=== PATIENT | female | born 1960 | race American Indian/Alaskan Native ===

== ENCOUNTER 2019-12-16 12:12 | Inpatient (IN) | payer OTHER ==
[2019-12-16] MEDS ORDERED: DEXTROSE 50% IN WATER (25GM) 50 ML SYRINGE IV ONE (12:22)
[2019-12-16] MEDS ORDERED: ETOMIDATE 20 MG/10 ML INJ IV ONE (12:23)
[2019-12-16] MEDS ORDERED: ROCURONIUM 50 MG/5 ML INJ IV ONE (12:23)
[2019-12-16] MEDS ORDERED: SUCCINYLCHOLINE CHLORIDE 200 MG/10 ML INJ MDV ONE (12:23)
[2019-12-16] MEDS ORDERED: SODIUM CHLORIDE 0.9% 1000 ML 1,000 ML IV ONE (12:39)
[2019-12-16] MEDS ORDERED: SODIUM BICARB 8.4% 50 MEQ/50 ML SYRINGE IV ONE (12:45)
[2019-12-16] MEDS ORDERED: EPINEPHrine 1 MG/10 ML SYRINGE ONE (12:45)
--- NOTE | 2019-12-16 12:53 | Emergency Department Report ---
ED Altered Mental Status HPI - General Stated Complaint: STROKE Time Seen by Provider: 12/16/19 12:38 Source: EMS - History of Present Illness Initial Comments: Patient is 59 years old female with history of congestive heart failure. Patient brought to the emergency room via EMS from home after patient was found unresponsive by her family. Family stated that last time patient was seen normal around 10 AM. EMS stated that patient was found unresponsive with initial oxygen saturation in the 70s. Patient found to be tachycardic. Upon arrival to the ER patient is unresponsive with a large amount of coffee-ground emesis. Patient immediately suctioned and intubated by me. Patient went into cardiac arrest with rhythm showing a PEA. Patient received 1 dose of epi and found to have a glucose of 48 patient also received dextrose 50. Patient regained her circulation after 2 rounds of CPR. MD Complaint: altered mental status, decreased responsiveness -: Sudden, This morning Severity: severe - Related Data Allergies Allergy/AdvReac Type Severity Reaction Status Date / Time Unable to Assess Allergy Unverified 12/16/19 17:18 ED Review of Systems ROS: Stated complaint: STROKE Other details as noted in HPI Comment: Unobtainable due to pts medical conditions ED Physical Exam - General General appearance: obtunded - Head Head exam: Present: atraumatic, normocephalic - ENT ENT exam: Present: mucous membranes dry - Neck Neck exam: Present: normal inspection - Respiratory Respiratory exam: Present: other (No spontaneous breathing.) - Cardiovascular Cardiovascular Exam: Present: tachycardia - GI/Abdominal GI/Abdominal exam: Present: soft, distended - Neurological Exam Neurological exam: Present: altered - Skin Skin exam: Present: warm, dry - Assessment Assessment Interval: Baseline - Level of Consciousness 1a. Level of Consciousness: coma/unresponsive - LOC Questions 1b. LOC Questions: dysarthric/intubated - LOC Command 1c. LOC Commands: performs no tasks correctly - Best Gaze 2. Best Gaze: normal - Visual 3. Visual: bilateral hemianopia - Facial Palsy 4. Facial Palsy: normal symmetrical movement - Motor Arm 5a. Motor Arm Left: no movement 5b. Motor Arm Right: no movement - Motor Leg 6a. Motor Leg Left: no movement 6b. Motor Leg Right: no movement - Limb Ataxia 7. Limb Ataxia: absent - Sensory 8. Sensory: no response/quadraplegic - Best Language 9. Best Language: coma/unresponsive - Dysarthria 10. Dysarthria: intubated or other barrier - Extinction and Inattention 11. Extinction/Inattention: no abnormality - Scoring Total Score: 30 Stroke Severity: Severe Stroke ED Course Vital Signs 12/16/19 12/16/19 12/16/19 13:54 14:00 14:45 Temperature Pulse Rate 81 69 Respiratory 18 Rate Blood Pressure 88/44 Blood Pressure 62/30 [Right] O2 Sat by Pulse 100 100 100 Oximetry 12/16/19 12/16/19 12/16/19 15:00 15:15 15:30 Temperature Pulse Rate 65 64 64 Respiratory 14 14 13 Rate Blood Pressure Blood Pressure 72/33 78/33 75/31 [Right] O2 Sat by Pulse 100 100 100 Oximetry 12/16/19 12/16/19 12/16/19 15:45 16:00 16:12 Temperature Pulse Rate 66 66 67 Respiratory 12 15 Rate Blood Pressure 70/26 Blood Pressure 76/28 73/26 [Right] O2 Sat by Pulse 100 100 100 Oximetry 12/16/19 12/16/19 12/16/19 16:15 16:30 17:30 Temperature Pulse Rate 67 68 70 Respiratory 14 12 18 Rate Blood Pressure 74/29 Blood Pressure 74/28 79/22 [Right] O2 Sat by Pulse 100 99 97 Oximetry 12/16/19 12/16/19 12/16/19 17:40 17:45 18:00 Temperature 87.3 F L Pulse Rate 71 69 69 Respiratory 20 19 20 Rate Blood Pressure 74/29 75/30 85/32 Blood Pressure [Right] O2 Sat by Pulse 99 95 90 Oximetry 12/16/19 12/16/19 12/16/19 18:15 18:23 18:30 Temperature Pulse Rate 68 67 69 Respiratory 18 17 21 Rate Blood Pressure 76/36 76/36 75/26 Blood Pressure [Right] O2 Sat by Pulse 79 L 94 83 L Oximetry 12/16/19 12/16/19 12/16/19 18:45 19:01 19:11 Temperature Pulse Rate 66 70 68 Respiratory 16 11 L 17 Rate Blood Pressure 82/39 88/29 88/29 Blood Pressure [Right] O2 Sat by Pulse 84 87 87 Oximetry 12/16/19 12/16/19 12/16/19 19:15 19:30 19:31 Temperature 88.6 F L Pulse Rate 73 71 Respiratory 18 13 Rate Blood Pressure 82/37 93/30 Blood Pressure [Right] O2 Sat by Pulse 80 L 83 L Oximetry 12/16/19 12/16/19 12/16/19 19:45 20:02 20:15 Temperature Pulse Rate 73 71 70 Respiratory 17 14 Rate Blood Pressure 90/46 86/43 86/43 Blood Pressure [Right] O2 Sat by Pulse 86 90 68 L Oximetry - Central Line Placement Right IJ Consent Obtained: emergent situation Time Out Performed: Yes Patient Placed on Monitor/Pulse Ox: Yes MD Prep: mask, gown, gloves Central Line Prep: Povidone-Iodine 1%, Chlorhexidine scrub, sterile drapes applied Local Anesthesia Used: Lidocaine 1% Ultrasound Used for Placement: Yes Central Line Lumen Inserted: triple Bloods Obtained for Lab: Yes Central Line Position: good blood return, all ports aspirated, flus, sutured in place with 2-0 Dressing Applied: Tegaderm, sterile gauze/tape Post Procedure X-Ray: tip of catheter in good p Patient Tolerated Procedure: well, no complications Complications: none - Intubation Time Out Performed: Yes Sedative: Etomidate Paralytic: Rocuronium Laryngoscope: Tona Size: 3 Assist Device Used: fiberoptic device ET Tube Size: 7 Tube Secured Location: teeth Tube Placement Confirmation: visualized tube passing t, equal breath sounds bilat, no breath sounds over epi, confirmation by capnometr Patient Tolerated Procedure: well, no complications Intubation Complications: difficult intubation Additional Comments: Patient required a lot of suctioning due to her current upper GI bleed. - Lab Data Result diagrams: 12/17/19 07:41 12/17/19 04:00 Lab Results 12/16/19 12/16/19 12/16/19 Range/Units 12:36 13:38 13:38 WBC (4.5-11.0) K/mm3 RBC (3.65-5.03) M/mm3 Hgb (10.1-14.3) gm/dl Hct (30.3-42.9) % MCV (79-97) fl MCH (28-32) pg MCHC (30-34) % RDW (13.2-15.2) % Plt Count (140-440) K/mm3 Add Manual Diff Total Counted Seg Neutrophils % Seg Neuts % (Manual) (40.0-70.0) % Band Neutrophils % % Lymphocytes % (Manual) (13.4-35.0) % Reactive Lymphs % (Man) % Monocytes % (Manual) (0.0-7.3) % Eosinophils % (Manual) (0.0-4.3) % Basophils % (Manual) (0.0-1.8) % Metamyelocytes % % Myelocytes % % Promyelocytes % % Blast Cells % % Nucleated RBC % Seg Neutrophils # Man (1.8-7.7) K/mm3 Band Neutrophils # K/mm3 Lymphocytes # (Manual) (1.2-5.4) K/mm3 Abs React Lymphs (Man) K/mm3 Monocytes # (Manual) (0.0-0.8) K/mm3 Eosinophils # (Manual) (0.0-0.4) K/mm3 Basophils # (Manual) (0.0-0.1) K/mm3 Metamyelocytes # K/mm3 Myelocytes # K/mm3 Promyelocytes # K/mm3 Blast Cells # K/mm3 WBC Morphology Hypersegmented Neuts Hyposegmented Neuts Hypogranular Neuts Smudge Cells Toxic Granulation Toxic Vacuolation Dohle Bodies Pelger-Huet Anomaly Joel Rods Platelet Estimate Clumped Platelets Plt Clumps, EDTA Large Platelets Giant Platelets Platelet Satelliting Plt Morphology Comment RBC Morphology Dimorphic RBCs Polychromasia Hypochromasia Poikilocytosis Anisocytosis Microcytosis Macrocytosis Spherocytes Pappenheimer Bodies Sickle Cells Target Cells Tear Drop Cells Ovalocytes Helmet Cells [place] Bodies [place] Rings Stringer Cells Bite Cells Crenated Cell Elliptocytes Acanthocytes (Spur) Rouleaux Hemoglobin C Crystals Schistocytes Malaria parasites Sang Bodies Hem Pathologist Commnt PT 21.1 H (12.2-14.9) Sec. INR 1.78 H (0.87-1.13) APTT 23.6 L (24.2-36.6) Sec. Thrombin Time 14.6 L (15.1-19.6) Sec. ABG pH (7.350-7.450) pH Units ABG pCO2 mm Hg ABG pO2 (80.0-90.0) mm Hg ABG HCO3 (20.0-26.0) mmol/L ABG O2 Saturation (95.0-99.0) % ABG O2 Content (0.0-44) ABG Base Excess (-2.0-3.0) mmol/L ABG Hemoglobin ABG Carboxyhemoglobin (0.0-5.0) % ABG Methemoglobin (0.0-1.5) % Oxyhemoglobin (95.0-99.0) % FiO2 % POC Glucose 49 L (70-105) Total Creatine Kinase 785 H (30-135) units/L CK-MB (CK-2) 12.8 H (0.0-4.0) ng/mL CK-MB (CK-2) Rel Index 1.6 (0-4) Troponin T < 0.010 (0.00-0.029) ng/mL Blood Type Antibody Screen Crossmatch 12/16/19 12/16/19 12/16/19 Range/Units 13:38 14:39 14:50 WBC 6.6 (4.5-11.0) K/mm3 RBC 0.64 L (3.65-5.03) M/mm3 Hgb 1.9 L* (10.1-14.3) gm/dl Hct 6.7 L* (30.3-42.9) % MCV 108 H (79-97) fl MCH 29 (28-32) pg MCHC 26 L (30-34) % RDW 23.0 H (13.2-15.2) % Plt Count 150 (140-440) K/mm3 Add Manual Diff Complete Total Counted 100 Seg Neutrophils % [place] Seg Neuts % (Manual) 89.0 H (40.0-70.0) % Band Neutrophils % 0 % Lymphocytes % (Manual) 4.0 L (13.4-35.0) % Reactive Lymphs % (Man) 0 % Monocytes % (Manual) 7.0 (0.0-7.3) % Eosinophils % (Manual) 0 (0.0-4.3) % Basophils % (Manual) 0 (0.0-1.8) % Metamyelocytes % 0 % Myelocytes % 0 % Promyelocytes % 0 % Blast Cells % 0 % Nucleated RBC % Not Reportable Seg Neutrophils # Man 5.9 (1.8-7.7) K/mm3 Band Neutrophils # 0.0 K/mm3 Lymphocytes # (Manual) 0.3 L (1.2-5.4) K/mm3 Abs React Lymphs (Man) 0.0 K/mm3 Monocytes # (Manual) 0.5 (0.0-0.8) K/mm3 Eosinophils # (Manual) 0.0 (0.0-0.4) K/mm3 Basophils # (Manual) 0.0 (0.0-0.1) K/mm3 Metamyelocytes # 0.0 K/mm3 Myelocytes # 0.0 K/mm3 Promyelocytes # 0.0 K/mm3 Blast Cells # 0.0 K/mm3 WBC Morphology Not Reportable Hypersegmented Neuts Not Reportable Hyposegmented Neuts Not Reportable Hypogranular Neuts Not Reportable Smudge Cells Not Reportable Toxic Granulation Not Reportable Toxic Vacuolation Not Reportable Dohle Bodies Not Reportable Pelger-Huet Anomaly Not Reportable Joel Rods Not Reportable Platelet Estimate Not Reportable Clumped Platelets Not Reportable Plt Clumps, EDTA Not Reportable Large Platelets Not Reportable Giant Platelets Not Reportable Platelet Satelliting Not Reportable Plt Morphology Comment Not Reportable RBC Morphology Not Reportable Dimorphic RBCs Not Reportable Polychromasia Not Reportable Hypochromasia Few Poikilocytosis Not Reportable Anisocytosis Few Microcytosis Few Macrocytosis Not Reportable Spherocytes Not Reportable Pappenheimer Bodies Not Reportable Sickle Cells Not Reportable Target Cells Not Reportable Tear Drop Cells Not Reportable Ovalocytes Not Reportable Helmet Cells Not Reportable [place] Bodies Not Reportable [place] Rings Not Reportable Rama Cells Not Reportable Bite Cells Not Reportable Crenated Cell Not Reportable Elliptocytes Not Reportable Acanthocytes (Spur) Not Reportable Rouleaux Not Reportable Hemoglobin C Crystals Not Reportable Schistocytes Not Reportable Malaria parasites Not Reportable Sang Bodies Not Reportable Hem Pathologist Commnt No PT (12.2-14.9) Sec. INR (0.87-1.13) APTT (24.2-36.6) Sec. Thrombin Time (15.1-19.6) Sec. ABG pH 7.267 L (7.350-7.450) pH Units ABG pCO2 40.7 mm Hg ABG pO2 195.5 H (80.0-90.0) mm Hg ABG HCO3 18.2 L (20.0-26.0) mmol/L ABG O2 Saturation 99.2 H (95.0-99.0) % ABG O2 Content 20.2 (0.0-44) ABG Base Excess -8.3 L (-2.0-3.0) mmol/L ABG Hemoglobin TNR ABG Carboxyhemoglobin 4.6 (0.0-5.0) % ABG Methemoglobin 0.7 (0.0-1.5) % Oxyhemoglobin 94.0 L (95.0-99.0) % FiO2 100 % POC Glucose (70-105) Total Creatine Kinase (30-135) units/L CK-MB (CK-2) (0.0-4.0) ng/mL CK-MB (CK-2) Rel Index (0-4) Troponin T (0.00-0.029) ng/mL Blood Type O POSITIVE Antibody Screen Negative Crossmatch See Detail 12/16/19 Range/Units 15:19 WBC (4.5-11.0) K/mm3 RBC (3.65-5.03) M/mm3 Hgb (10.1-14.3) gm/dl Hct (30.3-42.9) % MCV (79-97) fl MCH (28-32) pg MCHC (30-34) % RDW (13.2-15.2) % Plt Count (140-440) K/mm3 Add Manual Diff Total Counted Seg Neutrophils % Seg Neuts % (Manual) (40.0-70.0) % Band Neutrophils % % Lymphocytes % (Manual) (13.4-35.0) % Reactive Lymphs % (Man) % Monocytes % (Manual) (0.0-7.3) % Eosinophils % (Manual) (0.0-4.3) % Basophils % (Manual) (0.0-1.8) % Metamyelocytes % % Myelocytes % % Promyelocytes % % Blast Cells % % Nucleated RBC % Seg Neutrophils # Man (1.8-7.7) K/mm3 Band Neutrophils # K/mm3 Lymphocytes # (Manual) (1.2-5.4) K/mm3 Abs React Lymphs (Man) K/mm3 Monocytes # (Manual) (0.0-0.8) K/mm3 Eosinophils # (Manual) (0.0-0.4) K/mm3 Basophils # (Manual) (0.0-0.1) K/mm3 Metamyelocytes # K/mm3 Myelocytes # K/mm3 Promyelocytes # K/mm3 Blast Cells # K/mm3 WBC Morphology Hypersegmented Neuts Hyposegmented Neuts Hypogranular Neuts Smudge Cells Toxic Granulation Toxic Vacuolation Dohle Bodies Pelger-Huet Anomaly Joel Rods Platelet Estimate Clumped Platelets Plt Clumps, EDTA Large Platelets Giant Platelets Platelet Satelliting Plt Morphology Comment RBC Morphology Dimorphic RBCs Polychromasia Hypochromasia Poikilocytosis Anisocytosis Microcytosis Macrocytosis Spherocytes Pappenheimer Bodies Sickle Cells Target Cells Tear Drop Cells Ovalocytes Helmet Cells [place] Bodies [place] Rings Rama Cells Bite Cells Crenated Cell Elliptocytes Acanthocytes (Spur) Rouleaux Hemoglobin C Crystals Schistocytes Malaria parasites Sang Bodies Hem Pathologist Commnt PT (12.2-14.9) Sec. INR (0.87-1.13) APTT (24.2-36.6) Sec. Thrombin Time (15.1-19.6) Sec. ABG pH (7.350-7.450) pH Units ABG pCO2 mm Hg ABG pO2 (80.0-90.0) mm Hg ABG HCO3 (20.0-26.0) mmol/L ABG O2 Saturation (95.0-99.0) % ABG O2 Content (0.0-44) ABG Base Excess (-2.0-3.0) mmol/L ABG Hemoglobin ABG Carboxyhemoglobin (0.0-5.0) % ABG Methemoglobin (0.0-1.5) % Oxyhemoglobin (95.0-99.0) % FiO2 % POC Glucose 192 H (70-105) Total Creatine Kinase (30-135) units/L CK-MB (CK-2) (0.0-4.0) ng/mL CK-MB (CK-2) Rel Index (0-4) Troponin T (0.00-0.029) ng/mL Blood Type Antibody Screen Crossmatch - EKG Data -: EKG Interpreted by [place] EKG shows normal: sinus rhythm Rate: tachycardia Interpretation: no acute changes - Radiology Data Radiology results: report reviewed - Medical Decision Making Patient is 59 years old female with history of congestive heart failure. Patient brought to the emergency room via EMS from home after patient was found unresponsive by her family. Family stated that last time patient was seen normal around 10 AM. EMS stated that patient was found unresponsive with initial oxygen saturation in the 70s. Patient found to be tachycardic. Upon arrival to the ER patient is unresponsive with a large amount of coffee-ground emesis. Patient immediately suctioned and intubated by me. Patient went into cardiac arrest with rhythm showing a PEA. Patient received 1 dose of epi and found to have a glucose of 48 patient also received dextrose 50. Patient regained her circulation after 2 rounds of CPR. Patient remained hypotensive. Right internal jugular vein central line placed by me for fluid resuscitation and vasopressor. Patient hemoglobin is 1.9. 4 units of PRBC ordered. I discussed the patient with Dr. Michael Ac from gastroenterology and he advised to admit the patient to the ICU and he will follow-up with the patient. I discussed the patient with Dr. Love, he agreed to admit the patient to medical service for further management. Critical Care Time: Yes Critical care time in (mins) excluding proc time.: 45 Critical care attestation.: If time is entered above; I have spent that time in minutes in the direct care of this critically ill patient, excluding procedure time. ED Disposition Clinical Impression: Cardiopulmonary arrest, Acute respiratory failure, Upper GI bleed, Severe anemia Disposition: OP ADMIT IP TO THIS HOSP Is pt being admited?: Yes Condition: Stable
--- NOTE | 2019-12-16 13:30 | Cat Scan Report ---
CT head/brain wo con INDICATION / CLINICAL INFORMATION: 59 years Female; MAIN. Cerebrovascular accident. TECHNIQUE: Routine CT head without contrast. All CT scans at this location are performed using CT dos e reduction for ALARA by means of automated exposure control. COMPARISON: None. FINDINGS: BRAIN / INTRACRANIAL CONTENTS: There is mild cerebral white matter disease most consistent with micro vascular angiopathy. There is also mild cerebral atrophy. The ventricular system is correspondingly a ppropriate in size and configuration. There is no CT evidence of acute intracranial hemorrhage or sig nificant mass effect. There is edema involving the visualized left frontotemporal scalp soft tissues ORBITS: No significant abnormality of visualized orbits. SINUSES / MASTOIDS: There are scattered small air-fluid levels within the paranasal sinuses likely re lated to the patient's intubation. Is also mild scattered opacification within the mastoid air cells. CRANIOCERVICAL JUNCTION: No significant abnormality. ADDITIONAL FINDINGS: None. IMPRESSION: 1. There is mild microvascular angiopathy and cerebral atrophy without CT evidence of acute intracran ial hemorrhage. Signer Name: Miko Stockton MD Signed: 12/16/2019 1:25 PM Workstation Name: [id number]
--- NOTE | 2019-12-16 13:34 | XRay Report ---
CHEST 1 VIEW INDICATION / CLINICAL INFORMATION: ET TUBE PLACEMENT. COMPARISON: None available. FINDINGS: SUPPORT DEVICES: Endotracheal tube, nasogastric tube HEART / MEDIASTINUM: Cardiomegaly LUNGS / PLEURA: Masslike density in the right midlung No pneumothorax. ADDITIONAL FINDINGS: No significant additional findings. IMPRESSION: Endotracheal tube is present and the tip is just above the [place]. A masslike density is seen in the right midlung Signer Name: Romario Dukes MD FACR Signed: 12/16/2019 1:29 PM Workstation Name: [id number]
[2019-12-16] MEDS: PANTOPRAZOLE 80 MG in SODIUM CHLORIDE 0.9% 100 ML IV SCH ×2 (14:05→22:29)
[2019-12-16] MEDS: OCTREOTIDE 500 MCG in SODIUM CHLORIDE 0.9% 100 ML IV SCH ×2 (14:05→22:29)
[2019-12-16] MEDS: DEXTROSE 10% IN WATER 1,000 ML IV SCH (14:05)
[2019-12-16 14:06] LABS: INR 1.78 (0.87-1.13); Partial Thromboplastin Time 23.6 Sec. (24.2-36.6)
[2019-12-16 14:07] LABS: Thrombin Time 14.6 Sec. (15.1-19.6)
[2019-12-16 14:10] LABS: Creatine Kinase MB 12.8 ng/mL (0.0-4.0)
[2019-12-16] MEDS ORDERED: NORepinephrine/NS 4 MG-250 ML 4 MG/250 ML BAG IV ONE ×2 (14:51→19:43)
[2019-12-16] MEDS: NORepinephrine/NS 4 MG-250 ML 4 MG/250 ML BAG IV SCH ×3 (15:00→22:24)
[2019-12-16 15:04] LABS: ABG Base Excess -8.3 mmol/L (-2.0-3.0); ABG HCO3 18.2 mmol/L (20.0-26.0); ABG Methemoglobin 0.7 % (0.0-1.5); ABG Oxygen Saturation 99.2 % (95.0-99.0); ABG PCO2 40.7 mm Hg; ABG PH 7.267 pH Units (7.350-7.450); ABG PO2 195.5 mm Hg (80.0-90.0)
[2019-12-16 15:09] LABS: Platelet Count 150 K/mm3 (140-440)
--- NOTE | 2019-12-16 15:33 | XRay Report ---
CHEST 1 VIEW INDICATION / CLINICAL INFORMATION: Right internal jugular vein placement. COMPARISON: 12/16/2019 at 1255 hours FINDINGS: SUPPORT DEVICES: Interval placement of right IJ central line. The tip is in the expected location of the SVC and appears to be in appropriate position. Indwelling ET tube and NG tube remain in stable an d satisfactory position. HEART / MEDIASTINUM: Mild cardiomegaly is stable. LUNGS / PLEURA: There continues to be masslike density in the right midlung. However there is now add itional pulmonary opacities throughout the right lung. Very small left pleural effusion is again note d and stable in appearance. No pneumothorax. ADDITIONAL FINDINGS: No significant additional findings. IMPRESSION: 1. Progression of parenchymal disease throughout the right lung most likely representing pneumonia. 2. Masslike density is again noted in the right midlung measuring 4 cm. It is unclear if this is area of round pneumonia versus actual pulmonary mass. 3. No evidence of complication following right IJ central line placement. Signer Name: Yarely Cat MD Signed: 12/16/2019 3:28 PM Workstation Name: [id number]
[2019-12-16 16:07] LABS: Basophils % (Manual) 0 % (0.0-1.8); Eosinophils % (Manual) 0 % (0.0-4.3); Total Cells Counted 100
[2019-12-16 16:08] LABS: Anisocytosis Few; Hypochromasia Few
[2019-12-16 17:02] LABS: Red Blood Count 0.64 M/mm3 (3.65-5.03)
[2019-12-16 17:06] LABS: Mean Corpuscular Volume 108 fl (79-97)
[2019-12-16 17:07] LABS: Mean Corpuscular HGB Conc 26 % (30-34)
[2019-12-16 17:08] LABS: Hematocrit 6.7 % (30.3-42.9); Hemoglobin 1.9 gm/dl (10.1-14.3)
[2019-12-16] MEDS ORDERED: SODIUM CHLORIDE 0.9% 500 ML 500 ML IV ONE (17:17)
[2019-12-16] MEDS ORDERED: SODIUM CHLORIDE 0.9% 1000 ML 1,000 ML ONE (17:37)
[2019-12-16] MEDS ORDERED: ONDANSETRON 4 MG/2 ML INJ IV PRN (18:58)
[2019-12-16] MEDS ORDERED: MORPHINE 2 MG/1 ML INJ IV PRN (18:58)
[2019-12-16] MEDS ORDERED: HYDROmorphone 1 MG/1 ML INJ IV PRN (18:58)
[2019-12-16] MEDS ORDERED: ACETAMINOPHEN 325 MG TAB PO PRN (18:58)
--- NOTE | 2019-12-16 18:58 | History and Physical Report ---
History of Present Illness Date of examination: 12/16/19 Date of admission: 12/16/19 17:23 Chief complaint: Found unresponsive by family History of present illness: 59-year-old with history of congestive heart failure is brought in by EMS. Patient was found unresponsive by the family. Patient was normal around 10 AM.. When the EMS arrived the patient's oxygenation was 70%. Patient was found to be tachycardic. In the emergency room patient was unresponsive with a large amount of coffee-ground emesis. Patient also went into cardiac arrest with PEA. Patient was intubated and also received 1 dose of epi. Large amount of coffee- ground emesis and blood was there which were suctioned out. Patient intubated with emergency room physician. Dr. Herrmann. No fever or chills. No exposure to coronavirus. Past History Past Medical History: heart failure Past Surgical History: Other (Not known) Social history: lives with family, full code Family history: hypertension Medications and Allergies Allergies Allergy/AdvReac Type Severity Reaction Status Date / Time Unable to Assess Allergy Unverified 12/16/19 17:18 Active Meds: Active Medications Octreotide Acetate 500 mcg/ (Sodium Chloride) 101 mls @ 5.05 mls/hr IV TITR ELLA; Protocol Last Admin: 12/16/19 14:05 Dose: 25 mcg/hr, 5.05 mls/hr Documented by: Pantoprazole Sodium 80 mg/ (Sodium Chloride) 100 mls @ 10 mls/hr IV DIRECT ELLA Last Admin: 12/16/19 14:05 Dose: 8 mg/hr, 10 mls/hr Documented by: Dextrose ([email or web address]) 1,000 mls @ 150 mls/hr IV DIRECT ELLA Last Admin: 12/16/19 14:05 Dose: 150 mls/hr Documented by: Norepinephrine (Levophed Drip 4 Mg/Ns 250 Ml) 4 mg in 250 mls @ 7.5 mls/hr IV T ITR ELLA; Protocol Last Admin: 12/16/19 17:50 Dose: 30 mcg/min, 112.5 mls/hr Documented by: Exam - Physical Exam Narrative exam: Patient intubated - Constitutional Vitals: Temp Pulse Resp BP Pulse Ox 87.3 F L 69 21 75/26 83 L 12/16/19 17:40 12/16/19 18:30 12/16/19 18:30 12/16/19 18:30 12/16/19 18:30 General appearance: Present: severe distress, well-nourished - EENT Eyes: Present: PERRL ENT: hearing intact, clear oral mucosa - Neck Neck: Present: supple, normal ROM - Respiratory Respiratory effort: normal Respiratory: bilateral: CTA - Cardiovascular Heart rate: 110 Rhythm: regular Heart Sounds: Present: S1 & S2. Absent: rub, click - Extremities Extremities: pulses symmetrical, No edema Peripheral Pulses: within normal limits - Abdominal General gastrointestinal: Present: soft, non-tender, non-distended, normal bowel sounds Female genitourinary: Present: normal - Rectal Rectal Exam: deferred - Integumentary Integumentary: Present: clear, warm, dry - Musculoskeletal Musculoskeletal: other - Psychiatric Psychiatric: other (Unresponsive) - Neurologic Neurologic: moves all extremities - Allied Health Allied health notes reviewed: nursing, case management HEART Score - HEART Score Troponin: Troponin T < 0.010 ng/mL (0.00-0.029) 12/16/19 13:38 Results - Labs CBC & Chem 7: 12/17/19 03:15 12/17/19 04:00 Labs: Laboratory Last Values WBC 6.6 K/mm3 (4.5-11.0) 12/16/19 14:39 RBC 0.64 M/mm3 (3.65-5.03) L 12/16/19 14:39 Hgb 1.9 gm/dl (10.1-14.3) L* 12/16/19 14:39 Hct 6.7 % (30.3-42.9) L* 12/16/19 14:39 MCV 108 fl (79-97) H 12/16/19 14:39 MCH 29 pg (28-32) 12/16/19 14:39 MCHC 26 % (30-34) L 12/16/19 14:39 RDW 23.0 % (13.2-15.2) H 12/16/19 14:39 Plt Count 150 K/mm3 (140-440) 12/16/19 14:39 Add Manual Diff Complete 12/16/19 14:39 Total Counted 100 12/16/19 14:39 Seg Neutrophils % Invoice Machine Operator 12/16/19 14:39 Seg Neuts % (Manual) 89.0 % (40.0-70.0) H 12/16/19 14:39 Band Neutrophils % 0 % 12/16/19 14:39 Lymphocytes % (Manual) 4.0 % (13.4-35.0) L 12/16/19 14:39 Reactive Lymphs % (Man) 0 % 12/16/19 14:39 Monocytes % (Manual) 7.0 % (0.0-7.3) 12/16/19 14:39 Eosinophils % (Manual) 0 % (0.0-4.3) 12/16/19 14:39 Basophils % (Manual) 0 % (0.0-1.8) 12/16/19 14:39 Metamyelocytes % 0 % 12/16/19 14:39 Myelocytes % 0 % 12/16/19 14:39 Promyelocytes % 0 % 12/16/19 14:39 Blast Cells % 0 % 12/16/19 14:39 Nucleated RBC % Not Reportable 12/16/19 14:39 Seg Neutrophils # Man 5.9 K/mm3 (1.8-7.7) 12/16/19 14:39 Band Neutrophils # 0.0 K/mm3 12/16/19 14:39 Lymphocytes # (Manual) 0.3 K/mm3 (1.2-5.4) L 12/16/19 14:39 Abs React Lymphs (Man) 0.0 K/mm3 12/16/19 14:39 Monocytes # (Manual) 0.5 K/mm3 (0.0-0.8) 12/16/19 14:39 Eosinophils # (Manual) 0.0 K/mm3 (0.0-0.4) 12/16/19 14:39 Basophils # (Manual) 0.0 K/mm3 (0.0-0.1) 12/16/19 14:39 Metamyelocytes # 0.0 K/mm3 12/16/19 14:39 Myelocytes # 0.0 K/mm3 12/16/19 14:39 Promyelocytes # 0.0 K/mm3 12/16/19 14:39 Blast Cells # 0.0 K/mm3 12/16/19 14:39 WBC Morphology Not Reportable 12/16/19 14:39 Hypersegmented Neuts Not Reportable 12/16/19 14:39 Hyposegmented Neuts Not Reportable 12/16/19 14:39 Hypogranular Neuts Not Reportable 12/16/19 14:39 Smudge Cells Not Reportable 12/16/19 14:39 Toxic Granulation Not Reportable 12/16/19 14:39 Toxic Vacuolation Not Reportable 12/16/19 14:39 Dohle Bodies Not Reportable 12/16/19 14:39 Pelger-Huet Anomaly Not Reportable 12/16/19 14:39 Joel Rods Not Reportable 12/16/19 14:39 Platelet Estimate Not Reportable 12/16/19 14:39 Clumped Platelets Not Reportable 12/16/19 14:39 Plt Clumps, EDTA Not Reportable 12/16/19 14:39 Large Platelets Not Reportable 12/16/19 14:39 Giant Platelets Not Reportable 12/16/19 14:39 Platelet Satelliting Not Reportable 12/16/19 14:39 Plt Morphology Comment Not Reportable 12/16/19 14:39 RBC Morphology Not Reportable 12/16/19 14:39 Dimorphic RBCs Not Reportable 12/16/19 14:39 Polychromasia Not Reportable 12/16/19 14:39 Hypochromasia Few 12/16/19 14:39 Poikilocytosis Not Reportable 12/16/19 14:39 Anisocytosis Few 12/16/19 14:39 Microcytosis Few 12/16/19 14:39 Macrocytosis Not Reportable 12/16/19 14:39 Spherocytes Not Reportable 12/16/19 14:39 Pappenheimer Bodies Not Reportable 12/16/19 14:39 Sickle Cells Not Reportable 12/16/19 14:39 Target Cells Not Reportable 12/16/19 14:39 Tear Drop Cells Not Reportable 12/16/19 14:39 Ovalocytes Not Reportable 12/16/19 14:39 Helmet Cells Not Reportable 12/16/19 14:39 [place] Bodies Not Reportable 12/16/19 14:39 [place] Rings Not Reportable 12/16/19 14:39 [place] Cells Not Reportable 12/16/19 14:39 Bite Cells Not Reportable 12/16/19 14:39 Crenated Cell Not Reportable 12/16/19 14:39 Elliptocytes Not Reportable 12/16/19 14:39 Acanthocytes (Spur) Not Reportable 12/16/19 14:39 Rouleaux Not Reportable 12/16/19 14:39 Hemoglobin C Crystals Not Reportable 12/16/19 14:39 Schistocytes Not Reportable 12/16/19 14:39 Malaria parasites Not Reportable 12/16/19 14:39 Sang Bodies Not Reportable 12/16/19 14:39 Hem Pathologist Commnt No 12/16/19 14:39 PT 21.1 Sec. (12.2-14.9) H 12/16/19 13:38 INR 1.78 (0.87-1.13) H 12/16/19 13:38 APTT 23.6 Sec. (24.2-36.6) L 12/16/19 13:38 Thrombin Time 14.6 Sec. (15.1-19.6) L 12/16/19 13:38 ABG pH 7.267 pH Units (7.350-7.450) L 12/16/19 14:50 ABG pCO2 40.7 mm Hg 12/16/19 14:50 ABG pO2 195.5 mm Hg (80.0-90.0) H 12/16/19 14:50 ABG HCO3 18.2 mmol/L (20.0-26.0) L 12/16/19 14:50 ABG O2 Saturation 99.2 % (95.0-99.0) H 12/16/19 14:50 ABG O2 Content 20.2 (0.0-44) 12/16/19 14:50 ABG Base Excess -8.3 mmol/L (-2.0-3.0) L 12/16/19 14:50 ABG Hemoglobin TNR 12/16/19 14:50 ABG Carboxyhemoglobin 4.6 % (0.0-5.0) 12/16/19 14:50 ABG Methemoglobin 0.7 % (0.0-1.5) 12/16/19 14:50 Oxyhemoglobin 94.0 % (95.0-99.0) L 12/16/19 14:50 FiO2 100 % 12/16/19 14:50 POC Glucose 192 (70-105) H 12/16/19 15:19 Total Creatine Kinase 785 units/L (30-135) H 12/16/19 13:38 CK-MB (CK-2) 12.8 ng/mL (0.0-4.0) H 12/16/19 13:38 CK-MB (CK-2) Rel Index 1.6 (0-4) 12/16/19 13:38 Troponin T < 0.010 ng/mL (0.00-0.029) 12/16/19 13:38 Blood Type O POSITIVE 12/16/19 13:38 Antibody Screen Negative 12/16/19 13:38 Crossmatch See Detail 12/16/19 13:38 Short CBC 12/16/19 12/17/19 Range/Units 14:39 03:15 WBC 6.6 3.2 L (4.5-11.0) K/mm3 Hgb 1.9 L* 7.8 L D (10.1-14.3) gm/dl Hct 6.7 L* 24.6 L D (30.3-42.9) % Plt Count 150 125 L (140-440) K/mm3 BMP 12/17/19 04:00 Sodium 151 H Potassium 3.7 Chloride 117.6 H Carbon Dioxide 22 BUN 40 H Creatinine 0.9 Glucose 78 Calcium 8.8 Cardiac Enzymes 12/16/19 Range/Units 13:38 Total Creatine Kinase 785 H (30-135) units/L CK-MB (CK-2) 12.8 H (0.0-4.0) ng/mL Troponin T < 0.010 (0.00-0.029) ng/mL Liver Function 12/17/19 Range/Units 04:00 Total Bilirubin 0.50 (0.1-1.2) mg/dL AST 208 H (5-40) units/L ALT 137 H (7-56) units/L Alkaline Phosphatase 90 (35-129) units/L Albumin 1.6 L (3.9-5) g/dL Microbiology: Microbiology 12/16/19 14:45 Peripheral/Venous Blood Culture - Preliminary Culture in Progress 12/16/19 14:45 Peripheral/Venous Blood Culture - Preliminary Culture in Progress - Imaging and Cardiology Imaging and Cardiology: Head CT Microvascular angiopathy and cerebellar atrophy without CT evidence of acute intracranial hemorrhage Chest x-ray endotracheal tube in place a masslike density in the right midlung Abdominal x-ray nasogastric tube projected over the left upper quadrant in the expected location Goetz/IV: IV Catheter Type [Right Triple Lumen Cath Internal Jugular] IV Catheter Type [Left INT / Saline Lock Antecubital] Assessment and Plan Assessment and plan: Critical care statement The high probability OF a clinically significant sudden or life-threatening deterioration of the cardiorespiratory system and endocrine system required my full and direct attention, intervention and postoperative management. The aggregate critical care time was 35 minutes. The time is in addition to time spent performing reported procedures but includes the followin: Data review and interpretation 2: Patient assessment and monitoring of vital signs 3: Documentation 4:: Medication orders and management Advance Directives: Yes - Patient Problems (1) Acute respiratory failure with hypoxia Current Visit: Yes Status: Acute Plan to address problem: Patient intubated on and on ventilator Smoke Control Supervisor consult Vent management (2) Acute metabolic encephalopathy Current Visit: Yes Status: Acute Plan to address problem: Secondary to hypoxia and severe anemia (3) Severe anemia Current Visit: Yes Status: Acute Plan to address problem: Being transfused 4 units of packed red blood cells Hemoglobin is 1.9 (4) Upper GI bleed Current Visit: Yes Status: Acute Plan to address problem: Severe upper GI bleed Hemoglobin is dropped to 1.9 Transfused 4 units of packed red blood cells Protonix drip GI consult (5) Hypotension Current Visit: Yes Status: Acute Plan to address problem: Secondary to blood loss IV fluids and pressors in the form of Levophed and vasopressin initiated (6) CHF (congestive heart failure) Current Visit: Yes Status: Chronic Qualifiers: Heart failure chronicity: chronic Plan to address problem: No diuretics at this point Echocardiogram for ejection fraction (7) DVT prophylaxis Current Visit: Yes Status: Acute Plan to address problem: On SCDs and GI prophylaxis
[2019-12-16] MEDS ORDERED: D5W/0.9% NACL 1,000 ML IV SCH (19:00)
[2019-12-16] MEDS: VASOPRESSIN 20 UNIT in SODIUM CHLORIDE 0.9% 100 ML IV SCH ×2 (19:31→22:26)
[2019-12-16] MEDS ORDERED: SODIUM CHLORIDE 0.9% 500 ML 500 ML ONE (23:43)
[2019-12-17] MEDS: NORepinephrine/NS 4 MG-250 ML 4 MG/250 ML BAG IV SCH ×7 (00:48→15:35)
[2019-12-17] MEDS: DOPamine/D5W 800 MG/250 ML 800 MG/250 ML BAG IV SCH ×3 (01:59→22:59)
--- NOTE | 2019-12-17 03:12 | XRay Report ---
ABDOMEN SUPINE INDICATION / CLINICAL INFORMATION: NG Tube placement confirmation. COMPARISON: None available. FINDINGS: Nasogastric tube projected over the left upper quadrant, in the expected location of the proximal sto mach. Signer Name: Harry Doss MD Signed: 12/17/2019 3:07 AM Workstation Name: [id number]
[2019-12-17 03:44] LABS: Hematocrit 24.6 % (30.3-42.9); Hemoglobin 7.8 gm/dl (10.1-14.3); Mean Corpuscular HGB Conc 32 % (30-34); Mean Corpuscular Volume 98 fl (79-97); Platelet Count 125 K/mm3 (140-440); Red Blood Count 2.52 M/mm3 (3.65-5.03); Red Cell Distribution Width 16.2 % (13.2-15.2)
[2019-12-17 03:57] LABS: Alanine Aminotransferase 137 units/L (7-56); Albumin 1.6 g/dL (3.9-5); BUN/Creatinine Ratio 44; Blood Urea Nitrogen 40 mg/dL (7-17); Calcium 8.8 mg/dL (8.4-10.2); Hemolysis Index 13
[2019-12-17] MEDS: VASOPRESSIN 20 UNIT in SODIUM CHLORIDE 0.9% 100 ML IV SCH ×2 (05:24→16:31)
[2019-12-17 05:27] LABS: ABG Base Excess -3.7 mmol/L (-2.0-3.0); ABG HCO3 23.1 mmol/L (20.0-26.0); ABG Methemoglobin 0.6 % (0.0-1.5); ABG Oxygen Saturation 86.6 % (95.0-99.0); ABG PCO2 51.1 mm Hg; ABG PH 7.273 pH Units (7.350-7.450); ABG PO2 51.7 mm Hg (80.0-90.0)
[2019-12-17 05:37] LABS: Anisocytosis Few; Basophils % (Manual) 0 % (0.0-1.8); Eosinophils % (Manual) 0 % (0.0-4.3); Hypochromasia 1+; Macrocytosis Few; Total Cells Counted 100
[2019-12-17 05:38] LABS: Burr Cells Rare; Platelet Estimate Consistent w Auto
[2019-12-17] MEDS: DEXTROSE 10% IN WATER 1,000 ML IV SCH ×2 (05:54→13:45)
[2019-12-17] MEDS ORDERED: VANCOMYCIN PHARMACY TO DOSE IV SCH (08:00)
[2019-12-17] MEDS ORDERED: LACTATED RINGERS 2,000 ML ONE (08:44)
[2019-12-17] MEDS ORDERED: SODIUM CHLORIDE 0.9% 500 ML 500 ML IV NR (08:53)
[2019-12-17] MEDS ORDERED: LACTATED RINGERS 2,000 ML IV ONE ×2 (09:00→11:00)
[2019-12-17] MEDS: CEFEPIME/NS 2 GM/100 ML 2 GM/100 ML BAG IV SCH ×3 (09:04→22:21)
[2019-12-17 09:18] LABS: Hematocrit 27.4 % (30.3-42.9); Hemoglobin 8.8 gm/dl (10.1-14.3)
[2019-12-17] MEDS ORDERED: ACETAMINOPHEN 650 MG RECT SUPP PR PRN (09:51)
[2019-12-17] MEDS ORDERED: VANCOMYCIN 1,500 MG in SODIUM CHLORIDE 0.9% 500 ML 500 ML IV ONE (10:00)
--- NOTE | 2019-12-17 10:05 | Gastroenterology Consultation ---
History of Present Illness - Reason for Consult Consult date: 12/17/19 GI bleed Requesting physician: ADAM LEIJA - History of Present Illness This is a 59 yo female with pmh of CHF and anemia admitted overnight. GI consulted for coffee ground emesis. History is limited. Spoke with the patient's daughter on the phone. Patient brought in by EMS after being found unresponsive by the family. Upon EMS arrival, O2 sat was at 70% and tachycardic. Patient found to be unresponsive with a large amount of coffee ground emesis, which wa suctioned out and intubated. Went into cardiac arrest with PEA. intubated and received 1 dose of epi. Per daughter, patient has been complaining of swelling in her body. Has not been getting out of bed much. Was seen short of breath with talking. Has been having dark stools while on iron supplements. Patient was admitted at [facility] in 10/2019 and was told that she had blood vessels bleeding in her stomach but daughter could not give much details. No records available. No h/o liver disease or alcohol use per daughter. Patient intubated and on multiple pressors. Hgb at 1.7 and received 4 units of PRBCs overnight. Medication list reviewed. Patient home meds are lasix, levaquin, protonix, sucralfate. Past History Past Medical History: heart failure Past Surgical History: Other (Not known) Social history: lives with family, full code Family history: hypertension Medications and Allergies Allergies Allergy/AdvReac Type Severity Reaction Status Date / Time Unable to Assess Allergy Unverified 12/16/19 17:18 Active Meds: Active Medications Acetaminophen (Tylenol) 650 mg PO Q4H PRN PRN Reason: Pain MILD(1-3)/Fever >100.5/RIVERO Acetaminophen (Tylenol) 650 mg FL Q4H PRN PRN Reason: TEMP > 100.4 Hydromorphone HCl (Dilaudid) 0.5 mg IV Q3H PRN PRN Reason: Pain , Severe (7-10) Last Admin: 12/17/19 03:07 Dose: 0.5 mg Documented by: Octreotide Acetate 500 mcg/ (Sodium Chloride) 101 mls @ 5.05 mls/hr IV TITR ELLA; Protocol Last Admin: 12/16/19 22:29 Dose: 25 mcg/hr, 5.05 mls/hr Documented by: Pantoprazole Sodium 80 mg/ (Sodium Chloride) 100 mls @ 10 mls/hr IV DIRECT ELLA Last Admin: 12/16/19 22:29 Dose: 8 mg/hr, 10 mls/hr Documented by: Dextrose (D10w) 1,000 mls @ 150 mls/hr IV DIRECT ELLA Last Admin: 12/17/19 05:54 Dose: 150 mls/hr Documented by: Norepinephrine (Levophed Drip 4 Mg/Ns 250 Ml) 4 mg in 250 mls @ 7.5 mls/hr IV TITR ELLA; Protocol Last Admin: 12/17/19 08:25 Dose: 30 mcg/min, 112.5 mls/hr Documented by: Vasopressin 20 unit/ Sodium (Chloride) 101 mls @ 9.09 mls/hr IV TITR ELLA; Cee col Last Admin: 12/17/19 05:24 Dose: 0.03 units/min, 9.09 mls/hr Documented by: Dopamine HCl/Dextrose (Intropin Drip 800 Mg/D5w 250 Ml) 800 mg in 250 mls @ 2.914 mls/hr IV TITR ELLA; Protocol Last Titration: 12/17/19 09:33 Dose: 16 mcg/kg/min, 23.31 mls/hr Documented by: Cefepime HCl (Cefepime/Ns 2 Gm/100 Ml) 2 gm in 100 mls @ 200 mls/hr IV Q8HR ELLA; Protocol Last Admin: 12/17/19 09:04 Dose: 200 mls/hr Documented by: Vancomycin HCl 1,500 mg/ (Sodium Chloride) 530 mls @ 333.333 mls/hr IV ONCE ONE Stop: 12/17/19 11:35 Last Admin: 12/17/19 09:25 Dose: 333.333 mls/hr Documented by: Vancomycin HCl 1,250 mg/ (Sodium Chloride) 275 mls @ 166.667 mls/hr IV Q12HR ELLA Lactated Ringer's (Lactated Ringers) 2,000 mls @ 999 mls/hr IV BOLUS ONE Stop: 12/17/19 11:00 Last Admin: 12/17/19 08:57 Dose: 999 mls/hr Documented by: Sodium Chloride (Nacl 0.9% 500 Ml) 500 mls @ 0 mls/hr IV ONCE NR Stop: 12/17/19 23:59 Morphine Sulfate (Morphine) 2 mg IV Q4H PRN PRN Reason: Pain, Moderate (4-6) Ondansetron HCl (Zofran) 4 mg IV Q8H PRN PRN Reason: Nausea And Vomiting Sodium Chloride (Sodium Chloride Flush Syringe 10 Ml) 10 ml IV BID ELLA Last Admin: 12/17/19 08:59 Dose: 10 ml Documented by: Sodium Chloride (Sodium Chloride Flush Syringe 10 Ml) 10 ml IV PRN PRN PRN Reason: LINE FLUSH Review of Systems - Review of Systems ROS unobtainable: due to mental status Exam - Constitutional Vital Signs: Temp Pulse Resp BP Pulse Ox 101.6 F H 137 H 20 85/50 92 12/17/19 08:00 12/17/19 06:45 12/17/19 06:45 12/17/19 06:45 12/17/19 06:45 General appearance: other (intubated) - Respiratory Respiratory effort: other (intubated and on the vent) - Cardiovascular Rhythm: regular (tachycardic) - Gastrointestinal General gastrointestinal: Present: soft, distended, normal bowel sounds - Neurologic Neurological: other (opens eyes) - Labs CBC & Chem 7: 12/17/19 07:41 12/17/19 04:00 Lab Results: Laboratory Results - last 24 hr 12/16/19 12/16/19 12/16/19 12:36 13:38 13:38 WBC RBC Hgb Hct MCV MCH MCHC RDW Plt Count Add Manual Diff Total Counted Seg Neutrophils % Seg Neuts % (Manual) Band Neutrophils % Lymphocytes % (Manual) Reactive Lymphs % (Man) Monocytes % (Manual) Eosinophils % (Manual) Basophils % (Manual) Metamyelocytes % Myelocytes % Promyelocytes % Blast Cells % Nucleated RBC % Seg Neutrophils # Man Band Neutrophils # Lymphocytes # (Manual) Abs React Lymphs (Man) Monocytes # (Manual) Eosinophils # (Manual) Basophils # (Manual) Metamyelocytes # Myelocytes # Promyelocytes # Blast Cells # WBC Morphology Hypersegmented Neuts Hyposegmented Neuts Hypogranular Neuts Smudge Cells Toxic Granulation Toxic Vacuolation Dohle Bodies Pelger-Huet Anomaly Joel Rods Platelet Estimate Clumped Platelets Plt Clumps, EDTA Large Platelets Giant Platelets Platelet Satelliting Plt Morphology Comment RBC Morphology Dimorphic RBCs Polychromasia Hypochromasia Poikilocytosis Anisocytosis Microcytosis Macrocytosis Spherocytes Pappenheimer Bodies Sickle Cells Target Cells Tear Drop Cells Ovalocytes Helmet Cells [place] Bodies [place] Rings [place] Cells Bite Cells Crenated Cell Elliptocytes Acanthocytes (Spur) Rouleaux Hemoglobin C Crystals Schistocytes Malaria parasites Sang Bodies Hem Pathologist Commnt PT 21.1 H INR 1.78 H APTT 23.6 L Thrombin Time 14.6 L ABG pH POC ABG pCO2 ABG pCO2 POC ABG pO2 ABG pO2 POC ABG HCO3 ABG HCO3 ABG O2 Saturation ABG O2 Content POC ABG Base Excess ABG Base Excess ABG Hemoglobin ABG Carboxyhemoglobin ABG Methemoglobin ABG Sodium ABG Potassium ABG Chloride ABG Glucose Oxyhemoglobin FiO2 Sodium Potassium Chloride Carbon Dioxide Anion Gap BUN Creatinine Estimated GFR BUN/Creatinine Ratio Glucose POC Glucose 49 L Hemoglobin A1c Calcium Total Bilirubin AST ALT Alkaline Phosphatase Total Creatine Kinase 785 H CK-MB (CK-2) 12.8 H CK-MB (CK-2) Rel Index 1.6 Troponin T < 0.010 Total Protein Albumin Albumin/Globulin Ratio Arterial Blood Glucose Arterial Blood Ionized Calcium Blood Type Antibody Screen Crossmatch 12/16/19 12/16/19 12/16/19 13:38 14:39 14:50 WBC 6.6 RBC 0.64 L Hgb 1.9 L* Hct 6.7 L* MCV 108 H MCH 29 MCHC 26 L RDW 23.0 H Plt Count 150 Add Manual Diff Complete Total Counted 100 Seg Neutrophils % Resource Management Specialist Seg Neuts % (Manual) 89.0 H Band Neutrophils % 0 Lymphocytes % (Manual) 4.0 L Reactive Lymphs % (Man) 0 Monocytes % (Manual) 7.0 Eosinophils % (Manual) 0 Basophils % (Manual) 0 Metamyelocytes % 0 Myelocytes % 0 Promyelocytes % 0 Blast Cells % 0 Nucleated RBC % Not Reportable Seg Neutrophils # Man 5.9 Band Neutrophils # 0.0 Lymphocytes # (Manual) 0.3 L Abs React Lymphs (Man) 0.0 Monocytes # (Manual) 0.5 Eosinophils # (Manual) 0.0 Basophils # (Manual) 0.0 Metamyelocytes # 0.0 Myelocytes # 0.0 Promyelocytes # 0.0 Blast Cells # 0.0 WBC Morphology Not Reportable Hypersegmented Neuts Not Reportable Hyposegmented Neuts Not Reportable Hypogranular Neuts Not Reportable Smudge Cells Not Reportable Toxic Granulation Not Reportable Toxic Vacuolation Not Reportable Dohle Bodies Not Reportable Pelger-Huet Anomaly Not Reportable Joel Rods Not Reportable Platelet Estimate Not Reportable Clumped Platelets Not Reportable Plt Clumps, EDTA Not Reportable Large Platelets Not Reportable Giant Platelets Not Reportable Platelet Satelliting Not Reportable Plt Morphology Comment Not Reportable RBC Morphology Not Reportable Dimorphic RBCs Not Reportable Polychromasia Not Reportable Hypochromasia Few Poikilocytosis Not Reportable Anisocytosis Few Microcytosis Few Macrocytosis Not Reportable Spherocytes Not Reportable Pappenheimer Bodies Not Reportable Sickle Cells Not Reportable Target Cells Not Reportable Tear Drop Cells Not Reportable Ovalocytes Not Reportable Helmet Cells Not Reportable [place] Bodies Not Reportable [place] Rings Not Reportable [place] Cells Not Reportable Bite Cells Not Reportable Crenated Cell Not Reportable Elliptocytes Not Reportable Acanthocytes (Spur) Not Reportable Rouleaux Not Reportable Hemoglobin C Crystals Not Reportable Schistocytes Not Reportable Malaria parasites Not Reportable Sang Bodies Not Reportable Hem Pathologist Commnt No PT INR APTT Thrombin Time ABG pH 7.267 L POC ABG pCO2 ABG pCO2 40.7 POC ABG pO2 ABG pO2 195.5 H POC ABG HCO3 ABG HCO3 18.2 L ABG O2 Saturation 99.2 H ABG O2 Content 20.2 POC ABG Base Excess ABG Base Excess -8.3 L ABG Hemoglobin TNR ABG Carboxyhemoglobin 4.6 ABG Methemoglobin 0.7 ABG Sodium ABG Potassium ABG Chloride ABG Glucose Oxyhemoglobin 94.0 L FiO2 100 Sodium Potassium Chloride Carbon Dioxide Anion Gap BUN Creatinine Estimated GFR BUN/Creatinine Ratio Glucose POC Glucose Hemoglobin A1c Calcium Total Bilirubin AST ALT Alkaline Phosphatase Total Creatine Kinase CK-MB (CK-2) CK-MB (CK-2) Rel Index Troponin T Total Protein Albumin Albumin/Globulin Ratio Arterial Blood Glucose Arterial Blood Ionized Calcium Blood Type O POSITIVE Antibody Screen Negative Crossmatch See Detail 12/16/19 12/16/19 12/16/19 15:19 21:31 23:54 WBC RBC Hgb Hct MCV MCH MCHC RDW Plt Count Add Manual Diff Total Counted Seg Neutrophils % Seg Neuts % (Manual) Band Neutrophils % Lymphocytes % (Manual) Reactive Lymphs % (Man) Monocytes % (Manual) Eosinophils % (Manual) Basophils % (Manual) Metamyelocytes % Myelocytes % Promyelocytes % Blast Cells % Nucleated RBC % Seg Neutrophils # Man Band Neutrophils # Lymphocytes # (Manual) Abs React Lymphs (Man) Monocytes # (Manual) Eosinophils # (Manual) Basophils # (Manual) Metamyelocytes # Myelocytes # Promyelocytes # Blast Cells # WBC Morphology Hypersegmented Neuts Hyposegmented Neuts Hypogranular Neuts Smudge Cells Toxic Granulation Toxic Vacuolation Dohle Bodies Pelger-Huet Anomaly Joel Rods Platelet Estimate Clumped Platelets Plt Clumps, EDTA Large Platelets Giant Platelets Platelet Satelliting Plt Morphology Comment RBC Morphology Dimorphic RBCs Polychromasia Hypochromasia Poikilocytosis Anisocytosis Microcytosis Macrocytosis Spherocytes Pappenheimer Bodies Sickle Cells Target Cells Tear Drop Cells Ovalocytes Helmet Cells [place] Bodies [place] Rings Rama Cells Bite Cells Crenated Cell Elliptocytes Acanthocytes (Spur) Rouleaux Hemoglobin C Crystals Schistocytes Malaria parasites Sang Bodies Hem Pathologist Commnt PT INR APTT Thrombin Time ABG pH POC ABG pCO2 ABG pCO2 POC ABG pO2 ABG pO2 POC ABG HCO3 ABG HCO3 ABG O2 Saturation ABG O2 Content POC ABG Base Excess ABG Base Excess ABG Hemoglobin ABG Carboxyhemoglobin ABG Methemoglobin ABG Sodium ABG Potassium ABG Chloride ABG Glucose Oxyhemoglobin FiO2 Sodium Potassium Chloride Carbon Dioxide Anion Gap BUN Creatinine Estimated GFR BUN/Creatinine Ratio Glucose POC Glucose 192 H 366 H 149 H Hemoglobin A1c Calcium Total Bilirubin AST ALT Alkaline Phosphatase Total Creatine Kinase CK-MB (CK-2) CK-MB (CK-2) Rel Index Troponin T Total Protein Albumin Albumin/Globulin Ratio Arterial Blood Glucose Arterial Blood Ionized Calcium Blood Type Antibody Screen Crossmatch 12/17/19 12/17/19 12/17/19 03:15 04:00 04:59 WBC 3.2 L RBC 2.52 L Hgb 7.8 L D Hct 24.6 L D MCV 98 H MCH 31 MCHC 32 RDW 16.2 H Plt Count 125 L Add Manual Diff Complete Total Counted 100 Seg Neutrophils % Resource Management Specialist Seg Neuts % (Manual) 90.0 H Band Neutrophils % 0 Lymphocytes % (Manual) 2.0 L Reactive Lymphs % (Man) 0 Monocytes % (Manual) 8.0 H Eosinophils % (Manual) 0 Basophils % (Manual) 0 Metamyelocytes % 0 Myelocytes % 0 Promyelocytes % 0 Blast Cells % 0 Nucleated RBC % 9.0 H Seg Neutrophils # Man 2.9 Band Neutrophils # 0.0 Lymphocytes # (Manual) 0.1 L Abs React Lymphs (Man) 0.0 Monocytes # (Manual) 0.3 Eosinophils # (Manual) 0.0 Basophils # (Manual) 0.0 Metamyelocytes # 0.0 Myelocytes # 0.0 Promyelocytes # 0.0 Blast Cells # 0.0 WBC Morphology Not Reportable Hypersegmented Neuts Not Reportable Hyposegmented Neuts Not Reportable Hypogranular Neuts Not Reportable Smudge Cells Not Reportable Toxic Granulation Not Reportable Toxic Vacuolation Not Reportable Dohle Bodies Not Reportable Pelger-Huet Anomaly Not Reportable Joel Rods Not Reportable Platelet Estimate Consistent w auto Clumped Platelets Not Reportable Plt Clumps, EDTA Not Reportable Large Platelets Not Reportable Giant Platelets Not Reportable Platelet Satelliting Not Reportable Plt Morphology Comment Not Reportable RBC Morphology Not Reportable Dimorphic RBCs Not Reportable Polychromasia Not Reportable Hypochromasia 1+ Poikilocytosis Not Reportable Anisocytosis Few Microcytosis Not Reportable Macrocytosis Few Spherocytes Not Reportable Pappenheimer Bodies Not Reportable Sickle Cells Not Reportable Target Cells Not Reportable Tear Drop Cells Not Reportable Ovalocytes Not Reportable Helmet Cells Not Reportable [place] Bodies Not Reportable [place] Rings Not Reportable [place]co Cells Rare Bite Cells Not Reportable Crenated Cell Not Reportable Elliptocytes Not Reportable Acanthocytes (Spur) Not Reportable Rouleaux Not Reportable Hemoglobin C Crystals Not Reportable Schistocytes Not Reportable Malaria parasites Not Reportable Sang Bodies Not Reportable Hem Pathologist Commnt No PT INR APTT Thrombin Time ABG pH 7.273 L POC ABG pCO2 ABG pCO2 51.1 POC ABG pO2 ABG pO2 51.7 L POC ABG HCO3 ABG HCO3 23.1 ABG O2 Saturation 86.6 L ABG O2 Content 9.6 POC ABG Base Excess ABG Base Excess -3.7 L ABG Hemoglobin 8.1 L ABG Carboxyhemoglobin 2.1 ABG Methemoglobin 0.6 ABG Sodium ABG Potassium ABG Chloride ABG Glucose Oxyhemoglobin 84.2 L FiO2 80 Sodium 151 H Potassium 3.7 Chloride 117.6 H Carbon Dioxide 22 Anion Gap 15 BUN 40 H Creatinine 0.9 Estimated GFR > 60 BUN/Creatinine Ratio 44 Glucose 78 POC Glucose Hemoglobin A1c Calcium 8.8 Total Bilirubin 0.50 AST 208 H ALT 137 H Alkaline Phosphatase 90 Total Creatine Kinase CK-MB (CK-2) CK-MB (CK-2) Rel Index Troponin T Total Protein 3.4 L Albumin 1.6 L Albumin/Globulin Ratio 0.9 Arterial Blood Glucose Arterial Blood Ionized Calcium Blood Type Antibody Screen Crossmatch 12/17/19 12/17/19 12/17/19 06:00 06:00 07:17 WBC RBC Hgb Hct MCV MCH MCHC RDW Plt Count Add Manual Diff Total Counted Seg Neutrophils % Seg Neuts % (Manual) Band Neutrophils % Lymphocytes % (Manual) Reactive Lymphs % (Man) Monocytes % (Manual) Eosinophils % (Manual) Basophils % (Manual) Metamyelocytes % Myelocytes % Promyelocytes % Blast Cells % Nucleated RBC % Seg Neutrophils # Man Band Neutrophils # Lymphocytes # (Manual) Abs React Lymphs (Man) Monocytes # (Manual) Eosinophils # (Manual) Basophils # (Manual) Metamyelocytes # Myelocytes # Promyelocytes # Blast Cells # WBC Morphology Hypersegmented Neuts Hyposegmented Neuts Hypogranular Neuts Smudge Cells Toxic Granulation Toxic Vacuolation Dohle Bodies Pelger-Huet Anomaly Joel Rods Platelet Estimate Clumped Platelets Plt Clumps, EDTA Large Platelets Giant Platelets Platelet Satelliting Plt Morphology Comment RBC Morphology Dimorphic RBCs Polychromasia Hypochromasia Poikilocytosis Anisocytosis Microcytosis Macrocytosis Spherocytes Pappenheimer Bodies Sickle Cells Target Cells Tear Drop Cells Ovalocytes Helmet Cells [place] Bodies [place] Rings [place] Cells Bite Cells Crenated Cell Elliptocytes Acanthocytes (Spur) Rouleaux Hemoglobin C Crystals Schistocytes Malaria parasites Sang Bodies Hem Pathologist Commnt PT INR APTT Thrombin Time ABG pH 7.267 L POC ABG pCO2 51.7 H ABG pCO2 POC ABG pO2 58.7 L ABG pO2 POC ABG HCO3 23 ABG HCO3 ABG O2 Saturation ABG O2 Content POC ABG Base Excess -3.9 ABG Base Excess ABG Hemoglobin 9.1 L ABG Carboxyhemoglobin ABG Methemoglobin ABG Sodium 142.9 ABG Potassium 3.6 ABG Chloride 118.0 H ABG Glucose 80 Oxyhemoglobin FiO2 90.0 Sodium Potassium Chloride Carbon Dioxide Anion Gap BUN Creatinine Estimated GFR BUN/Creatinine Ratio Glucose POC Glucose 68 L 98 Hemoglobin A1c Calcium Total Bilirubin AST ALT Alkaline Phosphatase Total Creatine Kinase CK-MB (CK-2) CK-MB (CK-2) Rel Index Troponin T Total Protein Albumin Albumin/Globulin Ratio Arterial Blood Glucose 80 Arterial Blood Ionized Calcium 5.3 Blood Type Antibody Screen Crossmatch 12/17/19 12/17/19 07:41 07:41 WBC RBC Hgb 8.8 L Hct 27.4 L MCV MCH MCHC RDW Plt Count Add Manual Diff Total Counted Seg Neutrophils % Seg Neuts % (Manual) Band Neutrophils % Lymphocytes % (Manual) Reactive Lymphs % (Man) Monocytes % (Manual) Eosinophils % (Manual) Basophils % (Manual) Metamyelocytes % Myelocytes % Promyelocytes % Blast Cells % Nucleated RBC % Seg Neutrophils # Man Band Neutrophils # Lymphocytes # (Manual) Abs React Lymphs (Man) Monocytes # (Manual) Eosinophils # (Manual) Basophils # (Manual) Metamyelocytes # Myelocytes # Promyelocytes # Blast Cells # WBC Morphology Hypersegmented Neuts Hyposegmented Neuts Hypogranular Neuts Smudge Cells Toxic Granulation Toxic Vacuolation Dohle Bodies Pelger-Huet Anomaly Joel Rods Platelet Estimate Clumped Platelets Plt Clumps, EDTA Large Platelets Giant Platelets Platelet Satelliting Plt Morphology Comment RBC Morphology Dimorphic RBCs Polychromasia Hypochromasia Poikilocytosis Anisocytosis Microcytosis Macrocytosis Spherocytes Pappenheimer Bodies Sickle Cells Target Cells Tear Drop Cells Ovalocytes Helmet Cells [place] Bodies [place] Rings Rama Cells Bite Cells Crenated Cell Elliptocytes Acanthocytes (Spur) Rouleaux Hemoglobin C Crystals Schistocytes Malaria parasites Sang Bodies Hem Pathologist Commnt PT INR APTT Thrombin Time ABG pH POC ABG pCO2 ABG pCO2 POC ABG pO2 ABG pO2 POC ABG HCO3 ABG HCO3 ABG O2 Saturation ABG O2 Content POC ABG Base Excess ABG Base Excess ABG Hemoglobin ABG Carboxyhemoglobin ABG Methemoglobin ABG Sodium ABG Potassium ABG Chloride ABG Glucose Oxyhemoglobin FiO2 Sodium Potassium Chloride Carbon Dioxide Anion Gap BUN Creatinine Estimated GFR BUN/Creatinine Ratio Glucose POC Glucose Hemoglobin A1c 4.6 Calcium Total Bilirubin AST ALT Alkaline Phosphatase Total Creatine Kinase CK-MB (CK-2) CK-MB (CK-2) Rel Index Troponin T Total Protein Albumin Albumin/Globulin Ratio Arterial Blood Glucose Arterial Blood Ionized Calcium Blood Type Antibody Screen Crossmatch Assessment and Plan - Patient Problems (1) Upper GI bleed Current Visit: Yes Status: Acute Plan to address problem: # Upper GI bleed - unclear history but per report, patient had a large amount of coffee ground emesis by her in the ED prior to intubation. - overnight, minimal output from the NG tube and no output from the rectum. - Hgb at 1.7 on arrival and after 4 units of PRBC went to 7 range. - requiring multiple pressors. Rec - continue with PPI IV - discussed with patient's daughters on the phone regarding critical status as well as regarding EGD including risks involved with the procedure. - will proceed with EGD. - continue with resuscitation measures. - obtain records from [facility] as she was admitted in 10/2019 and per daughter she had EGD done at that time for bleeding blood vessels in the stomach.
[2019-12-17] MEDS ORDERED: SODIUM BICARB 8.4% 50 MEQ/50 ML SYRINGE IV ONE ×2 (10:06→11:00)
[2019-12-17] MEDS ORDERED: SODIUM CHLORIDE 0.9% 1000 ML 1,000 ML IV SCH (10:15)
[2019-12-17] MEDS ORDERED: WATER FOR IRRIG STERILE 1,000 ML BOTTLE ONE (10:29)
[2019-12-17] MEDS ORDERED: MIDAZOLAM 2 MG/2 ML INJ ONE (10:55)
[2019-12-17] MEDS: PHENYLEPHRINE 100 MG in SODIUM CHLORIDE 0.9% 90 ML IV SCH ×3 (10:56→22:57)
[2019-12-17] MEDS ORDERED: fentaNYL 100 MCG/2 ML INJ ONE (10:56)
[2019-12-17] MEDS ORDERED: MIDAZOLAM 2 MG/2 ML INJ IV ONE (11:00)
[2019-12-17] MEDS ORDERED: fentaNYL 100 MCG/2 ML INJ IV ONE (11:00)
[2019-12-17] MEDS: PANTOPRAZOLE 80 MG in SODIUM CHLORIDE 0.9% 100 ML IV SCH ×2 (11:02→22:29)
[2019-12-17] MEDS ORDERED: EPINEPHrine 1 MG/10 ML SYRINGE ONE (11:50)
--- NOTE | 2019-12-17 12:27 | Operative Report ---
Operative Report Operative Report: Date:12/17/2019 Pre procedure diagnosis:GI bleed Post procedure diagnosis:gastric AVMs Procedure: Esophagogastroduodenoscopy Endoscopist: Gene Moreno MD Medications: no sedation. Patient intubated. Complications:none Estimated blood loss: None After careful discussion of the nature and purpose of the procedure, details of the technique, risks, benefits and alternatives, the patient gave consent. The patient was placed in the left lateral decubitus position and medicated by anesthesia- see separate records for details. The tip of the olympus video upper scope was passed per orum under direct view through the mouth and into the esophagus, stomach and duodenum. The scope was advanced to the secondportion of the duodenum without difficulty. The second portion of the duodenumwasnormal. The bulb revealed a few small AVMs without active bleeding. The scope was withdrawn back into the stomach and the stomach gently insufflated with air. The antrum revealed pale appearing mucosa. The scope was then retroflexed and partially withdrawn to inspect the proximal stomach. The cardia and fundus revealed multiple small to medium size angioectasia without signs of bleeding. There was an ulcer in the cardia with limited view due to difficult angle. The ulcer was about 8-9 mm without active bleeding and no obvious visible vessel but possible flat spot. 4 cc of epinephrine injection performed followed by attempts for endoclip placement. One endoclip misfired but one was placed onto the ulcer. The scope was then withdrawn in the forward view. The EG junction was at 40 cm.The distal esohagus showed 2 medium size esophageal varices without active bleeding. Banding ligation performed with 2 bands placed. The procedure was well tolerated and the patient was observed in the GI recovery unit. IMPRESSION: 1. A few small nonbleeding AVMs in the duodenal bulb. 2. Multiple small to medium size nonbleeding AVMs in the cardia and fundus. 3. An ulcer in the cardia without active bleeding or obvious visible vessel but possible flat spot. Epi injection followed by endoclip placement. 4. 2 medium size esophageal varices without active bleeding. Banding ligation with 2 bands placed. 5. Possible bleeding may have been due to cardia ulcer vs gastric AVMs vs esophageal varices. No active bleeding noted throughout the exam. Plan: 1. Continue with PPI IV and octreotide IV 2. Monitor H/H serially and transfuse as needed. 3. Management for shock and sepsis. 4. Recommend CT a/p IV contrast when stable. 5. In case of recurrent bleeding, recommend CT angio vs repeat EGD. 6. Update family and discussed with Dr. Rondon with ICU. 7. Patient remains critically ill. Gene Moreno MD (Jenny) [facility]
--- NOTE | 2019-12-17 12:33 | Consultation ---
History of Present Illness Consult date: 12/17/19 Requesting physician: KERA VASQUEZ Reason for consult: other (Shock, GI bleed, possible CHF, concern for varices) History of present illness: 59 y/o female, never been here before admitted with GI bleed, s/p cardiac arrest and acute respiratory failure. A consult was placed at 1840 by the hospitalist and a consult was called to my answering service by the medical assistant secretary for vent management. I never spoke to a physician about this patient. This am called about patient being hypotensive on Dopamine, Levophed and Vasopressin. Also patient is hypoglycemic and on D10 drip at 150. She is not sedated. Nursing was not able to pass marie. Remainder of the review is unobtainable. Per family she was just hospitalized at [facility] a few weeks ago but no one can give details about this. In the ED she obtained rosc with 2 rounds of epi per documentation. Past History Past Medical History: heart failure Past Surgical History: Other (Not known) Social history: lives with family, full code Family history: hypertension Medications and Allergies Allergies Allergy/AdvReac Type Severity Reaction Status Date / Time Unable to Assess Allergy Unverified 12/16/19 17:18 Active Meds: Active Medications Acetaminophen (Tylenol) 650 mg PO Q4H PRN PRN Reason: Pain MILD(1-3)/Fever >100.5/RIVERO Acetaminophen (Tylenol) 650 mg [place] Q4H PRN PRN Reason: TEMP > 100.4 Hydromorphone HCl (Dilaudid) 0.5 mg IV Q3H PRN PRN Reason: Pain , Severe (7-10) Last Admin: 12/17/19 03:07 Dose: 0.5 mg Documented by: Octreotide Acetate 500 mcg/ (Sodium Chloride) 101 mls @ 5.05 mls/hr IV TITR ELLA; Protocol Last Admin: 12/16/19 22:29 Dose: 25 mcg/hr, 5.05 mls/hr Documented by: Pantoprazole Sodium 80 mg/ (Sodium Chloride) 100 mls @ 10 mls/hr IV DIRECT ELLA Last Admin: 12/17/19 11:02 Dose: 8 mg/hr, 10 mls/hr Documented by: Norepinephrine (Levophed Drip 4 Mg/Ns 250 Ml) 4 mg in 250 mls @ 7.5 mls/hr IV TITR ELLA; Protocol Last Admin: 12/17/19 10:47 Dose: 30 mcg/min, 112.5 mls/hr Documented by: Vasopressin 20 unit/ Sodium (Chloride) 101 mls @ 9.09 mls/hr IV TITR ELLA; Protocol Last Admin: 12/17/19 05:24 Dose: 0.03 units/min, 9.09 mls/hr Documented by: Dopamine HCl/Dextrose (Intropin Drip 800 Mg/D5w 250 Ml) 800 mg in 250 mls @ 2.914 mls/hr IV TITR ELLA; Protocol Last Titration: 12/17/19 10:45 Dose: 20 mcg/kg/min, 29.138 mls/hr Documented by: Cefepime HCl (Cefepime/Ns 2 Gm/100 Ml) 2 gm in 100 mls @ 200 mls/hr IV Q8HR ELLA; Protocol Last Admin: 12/17/19 09:04 Dose: 200 mls/hr Documented by: Vancomycin HCl 1,250 mg/ (Sodium Chloride) 275 mls @ 166.667 mls/hr IV Q12HR ELLA Sodium Chloride (Nacl 0.9% 500 Ml) 500 mls @ 0 mls/hr IV ONCE NR Stop: 12/17/19 23:59 Lactated Ringer's (Lactated Ringers) 2,000 mls @ 999 mls/hr IV BOLUS ONE Stop: 12/17/19 13:00 Sodium Chloride (Nacl 0.9% 1000 Ml) 1,000 mls @ 50 mls/hr IV DIRECT ELLA Stop: 12/17/19 23:59 Dextrose (D10w) 1,000 mls @ 150 mls/hr IV DIRECT ELLA Phenylephrine HCl 100 mg/ (Sodium Chloride) 100 mls @ 3 mls/hr IV TITR ELLA; Protocol Last Admin: 12/17/19 10:56 Dose: 50 mcg/min, 3 mls/hr Documented by: Morphine Sulfate (Morphine) 2 mg IV Q4H PRN PRN Reason: Pain, Moderate (4-6) Ondansetron HCl (Zofran) 4 mg IV Q8H PRN PRN Reason: Nausea And Vomiting Sodium Chloride (Sodium Chloride Flush Syringe 10 Ml) 10 ml IV BID ELLA Last Admin: 12/17/19 08:59 Dose: 10 ml Documented by: Sodium Chloride (Sodium Chloride Flush Syringe 10 Ml) 10 ml IV PRN PRN PRN Reason: LINE FLUSH Review of Systems ROS unobtainable: due to endotracheal tube, due to mental status Physical Examination Vital signs: Vital Signs Pulse BP Pulse Ox 81 88/44 100 12/16/19 13:54 12/16/19 13:54 12/16/19 13:54 General appearance: comatose, appears uncomfortable Eyes: icteric ENT: other (orally intubated and sedated) Neck: supple Effort: mildly labored Ascultation: Bilateral: diminished breath sounds Percussion: Bilateral: not dull Cardiovascular: other (sinus tach) Gastrointestinal: other (distended, firm, scant bowel sounds) Extremities: anasarca unable to assess Results - Laboratory Findings CBC and BMP: 12/17/19 07:41 12/17/19 04:00 ABG ABG pH 7.267 (7.320-7.450) L 12/17/19 06:00 POC ABG pCO2 51.7 mmHg (32.0-48.0) H 12/17/19 06:00 ABG pCO2 51.1 mm Hg 12/17/19 04:59 POC ABG pO2 58.7 mmHg (83-108) L 12/17/19 06:00 ABG pO2 51.7 mm Hg (80.0-90.0) L 12/17/19 04:59 POC ABG HCO3 23 12/17/19 06:00 ABG O2 Saturation 86.6 % (95.0-99.0) L 12/17/19 04:59 PT/INR, D-dimer PT 21.1 Sec. (12.2-14.9) H 12/16/19 13:38 INR 1.78 (0.87-1.13) H 12/16/19 13:38 Abnormal lab findings: Abnormal Labs 12/16/19 12/16/19 12/16/19 12:36 13:38 13:38 WBC RBC Hgb Hct MCV MCHC RDW Plt Count Seg Neuts % (Manual) Lymphocytes % (Manual) Monocytes % (Manual) Nucleated RBC % Lymphocytes # (Manual) PT 21.1 H INR 1.78 H APTT 23.6 L Thrombin Time 14.6 L ABG pH POC ABG pCO2 POC ABG pO2 ABG pO2 ABG HCO3 ABG O2 Saturation ABG Base Excess ABG Hemoglobin ABG Chloride Oxyhemoglobin Sodium Chloride BUN POC Glucose 49 L AST ALT Total Creatine Kinase 785 H CK-MB (CK-2) 12.8 H Total Protein Albumin Crossmatch 12/16/19 12/16/19 12/16/19 13:38 14:39 14:50 WBC RBC 0.64 L Hgb 1.9 L* Hct 6.7 L* MCV 108 H MCHC 26 L RDW 23.0 H Plt Count Seg Neuts % (Manual) 89.0 H Lymphocytes % (Manual) 4.0 L Monocytes % (Manual) Nucleated RBC % Lymphocytes # (Manual) 0.3 L PT INR APTT Thrombin Time ABG pH 7.267 L POC ABG pCO2 POC ABG pO2 ABG pO2 195.5 H ABG HCO3 18.2 L ABG O2 Saturation 99.2 H ABG Base Excess -8.3 L ABG Hemoglobin ABG Chloride Oxyhemoglobin 94.0 L Sodium Chloride BUN POC Glucose AST ALT Total Creatine Kinase CK-MB (CK-2) Total Protein Albumin Crossmatch See Detail 12/16/19 12/16/19 12/16/19 15:19 21:31 23:54 WBC RBC Hgb Hct MCV MCHC RDW Plt Count Seg Neuts % (Manual) Lymphocytes % (Manual) Monocytes % (Manual) Nucleated RBC % Lymphocytes # (Manual) PT INR APTT Thrombin Time ABG pH POC ABG pCO2 POC ABG pO2 ABG pO2 ABG HCO3 ABG O2 Saturation ABG Base Excess ABG Hemoglobin ABG Chloride Oxyhemoglobin Sodium Chloride BUN POC Glucose 192 H 366 H 149 H AST ALT Total Creatine Kinase CK-MB (CK-2) Total Protein Albumin Crossmatch 12/17/19 12/17/19 12/17/19 03:15 04:00 04:59 WBC 3.2 L RBC 2.52 L Hgb 7.8 L D Hct 24.6 L D MCV 98 H MCHC RDW 16.2 H Plt Count 125 L Seg Neuts % (Manual) 90.0 H Lymphocytes % (Manual) 2.0 L Monocytes % (Manual) 8.0 H Nucleated RBC % 9.0 H Lymphocytes # (Manual) 0.1 L PT INR APTT Thrombin Time ABG pH 7.273 L POC ABG pCO2 POC ABG pO2 ABG pO2 51.7 L ABG HCO3 ABG O2 Saturation 86.6 L ABG Base Excess -3.7 L ABG Hemoglobin 8.1 L ABG Chloride Oxyhemoglobin 84.2 L Sodium 151 H Chloride 117.6 H BUN 40 H POC Glucose AST 208 H ALT 137 H Total Creatine Kinase CK-MB (CK-2) Total Protein 3.4 L Albumin 1.6 L Crossmatch 12/17/19 12/17/19 12/17/19 06:00 06:00 07:41 WBC RBC Hgb 8.8 L Hct 27.4 L MCV MCHC RDW Plt Count Seg Neuts % (Manual) Lymphocytes % (Manual) Monocytes % (Manual) Nucleated RBC % Lymphocytes # (Manual) PT INR APTT Thrombin Time ABG pH 7.267 L POC ABG pCO2 51.7 H POC ABG pO2 58.7 L ABG pO2 ABG HCO3 ABG O2 Saturation ABG Base Excess ABG Hemoglobin 9.1 L ABG Chloride 118.0 H Oxyhemoglobin Sodium Chloride BUN POC Glucose 68 L AST ALT Total Creatine Kinase CK-MB (CK-2) Total Protein Albumin Crossmatch - Diagnostic Findings Chest x-ray: image reviewed (Does appear to be a mass like lesion in the right mid lung region of the CXR) Assessment and Plan 59 y/o female admitted post cardiac arrest after being found down at home by EMS. ROSC achieved at 2 rounds of CPR, code sheet is not in the chart, with GI bleed, acute respiratory failure, possible CHF encephalopathy 1. GI-Per charting HgB was <2. After only 4 units, greater than 7. No repeat done once in ED. Will place on serial CBC's. Given her pressor requirement, will transfuse more HgB right now. SHe had EGD this am with no active bleeding but banding of varices that were found and clipping of one gastric ulcer. Multiple AVM's seen in the stomach as well. Will transfuse for HgB less than 7 or evidence of gross bleeding. Will also obtain abdominal ultrasound complete to look for cirrhosis or other disease states. 2. CV-Possible CHF with cardiovascular collapse. Could be multifactorial given severe anemia, elevated white count in Urine and new fever. Could be sepsis as well. Patient is ventilated, so will continue aggressive volume resuscitation. Her BP is low so placing an art line for more adequate measurements. Ext are warm so does not clinically appear to be in cardiogenic shock but will obtain echo as well. Continue vasopressor support. 3. Resp-intubated secondary to cardiac arrest. Per report was hypoxic in the field as well. CXR shows what appears to be a right mid lung vs upper lung mass like lesion. Family with no clue about this and awaiting records from [facility]. Will continue Max vent support. Follow up repeat ABG once art line placed. 4. -Unable to pass marie on multiple attempts. Per nursing, mass like lesion felt on exam. Spoke with IMS about consult for Marie placement. Bladder appears distended and full on bedside ultrasound. Also ordered transvaginal ultrasound as well. 5. ID-Fever, unknown origin at this time. Will obtain blood cultures. Will likely extend spectrum of abx to Cefepime and Vanc given recent history of hospital stay. 6. Neuro-long period of time of hypoxemia and hypotension. Concern for damage from this. Too unstable to go down for CT of head now but admission Head CT showed no acute intracranial disease but cerebral atrophy. 7. Overall prognosis is very guarded to poor. Hopeful to obtain some meaningful information from [facility]. Spoke with family about severity of situation. Will attempt to get CT of Chest abdomen and pelvis with contrast if patient becomes more stable. CCt 31 minutes.
--- NOTE | 2019-12-17 13:07 | Consultation ---
History of Present Illness - Reason for Consult Consult date: 12/17/19 Septic shock Requesting physician: KERA VASQUEZ - History of Present Illness The patient is a 59-year-old female with history of CHF admitted to the hospital after she was found unresponsive by the family. Upon evaluation by EMS, patient was noted to be hypoxic with a saturation in the 70s, she was brought to the emergency room and had large amount of coffee-ground emesis and subsequently went into PEA arrest. She was resuscitated, her hemoglobin came back as 1.9, patient was also extremely hypothermic with her temperature being 87.3 F. She is currently intubated, critically ill. On multiple pressors. Infectious diseases was consulted for possible septic shock. Review of Systems: Sedated, limited, on the vent Past History Past Medical History: heart failure Past Surgical History: Other (Not known) Social history: lives with family, full code Family history: hypertension Medications and Allergies Allergies Allergy/AdvReac Type Severity Reaction Status Date / Time Unable to Assess Allergy Unverified 12/16/19 17:18 Active Meds: Active Medications Acetaminophen (Tylenol) 650 mg PO Q4H PRN PRN Reason: Pain MILD(1-3)/Fever >100.5/RIVERO Acetaminophen (Tylenol) 650 mg [place] Q4H PRN PRN Reason: TEMP > 100.4 Last Admin: 12/17/19 11:57 Dose: 650 mg Documented by: Hydromorphone HCl (Dilaudid) 0.5 mg IV Q3H PRN PRN Reason: Pain , Severe (7-10) Last Admin: 12/17/19 03:07 Dose: 0.5 mg Documented by: Octreotide Acetate 500 mcg/ (Sodium Chloride) 101 mls @ 5.05 mls/hr IV TITR ELLA; Protocol Last Admin: 12/16/19 22:29 Dose: 25 mcg/hr, 5.05 mls/hr Documented by: Pantoprazole Sodium 80 mg/ (Sodium Chloride) 100 mls @ 10 mls/hr IV DIRECT ELLA Last Admin: 12/17/19 11:02 Dose: 8 mg/hr, 10 mls/hr Documented by: Norepinephrine (Levophed Drip 4 Mg/Ns 250 Ml) 4 mg in 250 mls @ 7.5 mls/hr IV TITR ELLA; Protocol Last Admin: 12/17/19 10:47 Dose: 30 mcg/min, 112.5 mls/hr Documented by: Vasopressin 20 unit/ Sodium (Chloride) 101 mls @ 9.09 mls/hr IV TITR ELLA; Protocol Last Admin: 12/17/19 05:24 Dose: 0.03 units/min, 9.09 mls/hr Documented by: Dopamine HCl/Dextrose (Intropin Drip 800 Mg/D5w 250 Ml) 800 mg in 250 mls @ 2.914 mls/hr IV TITR ELLA; Protocol Last Titration: 12/17/19 10:45 Dose: 20 mcg/kg/min, 29.138 mls/hr Documented by: Cefepime HCl (Cefepime/Ns 2 Gm/100 Ml) 2 gm in 100 mls @ 200 mls/hr IV Q8HR ELLA; Protocol Last Admin: 12/17/19 09:04 Dose: 200 mls/hr Documented by: Vancomycin HCl 1,250 mg/ (Sodium Chloride) 275 mls @ 166.667 mls/hr IV Q12HR ELLA Sodium Chloride (Nacl 0.9% 500 Ml) 500 mls @ 0 mls/hr IV ONCE NR Stop: 12/17/19 23:59 Last Admin: 12/17/19 12:41 Dose: 30 mls/hr Documented by: Sodium Chloride (Nacl 0.9% 1000 Ml) 1,000 mls @ 50 mls/hr IV DIRECT ELLA Stop: 12/17/19 23:59 Dextrose (D10w) 1,000 mls @ 150 mls/hr IV DIRECT ELLA Phenylephrine HCl 100 mg/ (Sodium Chloride) 100 mls @ 3 mls/hr IV TITR ELLA; Protocol Last Admin: 12/17/19 10:56 Dose: 50 mcg/min, 3 mls/hr Documented by: Morphine Sulfate (Morphine) 2 mg IV Q4H PRN PRN Reason: Pain, Moderate (4-6) Ondansetron HCl (Zofran) 4 mg IV Q8H PRN PRN Reason: Nausea And Vomiting Sodium Chloride (Sodium Chloride Flush Syringe 10 Ml) 10 ml IV BID ELLA Last Admin: 12/17/19 08:59 Dose: 10 ml Documented by: Sodium Chloride (Sodium Chloride Flush Syringe 10 Ml) 10 ml IV PRN PRN PRN Reason: LINE FLUSH Physical Examination - Physical Exam Narrative exam: Physical Exam: Constitutional: sedated, intubated, on the vent Head, Ears, Nose: Normocephalic, atraumatic. External ears, nose normal Eyes: Conjunctivae/corneas clear. No icterus. No ptosis. Neck: intubated Oral: intubated Cardiovascular: S1, S2 + Respiratory: AE fair bilaterally and equal GI: Soft, bowel sounds + Musculoskeletal: No pedal edema, no cyanosis. Skin: No rash or abscess Hem/Lymphatic: No palpable cervical or supraclavicular nodes. No lymphangitis Psych: no agitation Neurological: sedated, intubated, on the vent, exam limited - Constitutional Vitals: Vital Signs Temp Pulse Resp BP Pulse Ox 101.6 F H 108 H 25 H 88/42 90 12/17/19 10:45 12/17/19 12:10 12/17/19 11:57 12/17/19 12:10 12/17/19 12:10 Temperature -Last 24 Hours Temperature 101.6 F Temperature 101.6 F Temperature 101.6 F Temperature 99.4 F Temperature 97.7 F Temperature 95.5 F Temperature 95.4 F Temperature 95.7 F Temperature 95.5 F Temperature 88.6 F Temperature 87.3 F Results - Labs CBC & Chem 7: 12/17/19 07:41 12/17/19 04:00 Labs: Abnormal lab results 12/16/19 12/16/19 12/16/19 Range/Units 13:38 13:38 13:38 WBC (4.5-11.0) K/mm3 RBC (3.65-5.03) M/mm3 Hgb (10.1-14.3) gm/dl Hct (30.3-42.9) % MCV (79-97) fl MCHC (30-34) % RDW (13.2-15.2) % Plt Count (140-440) K/mm3 Seg Neuts % (Manual) (40.0-70.0) % Lymphocytes % (Manual) (13.4-35.0) % Monocytes % (Manual) (0.0-7.3) % Nucleated RBC % (0.0-0.9) % Lymphocytes # (Manual) (1.2-5.4) K/mm3 PT 21.1 H (12.2-14.9) Sec. INR 1.78 H (0.87-1.13) APTT 23.6 L (24.2-36.6) Sec. Thrombin Time 14.6 L (15.1-19.6) Sec. ABG pH (7.350-7.450) pH Units POC ABG pCO2 (32.0-48.0) mmHg POC ABG pO2 (83-108) mmHg ABG pO2 (80.0-90.0) mm Hg ABG HCO3 (20.0-26.0) mmol/L ABG O2 Saturation (95.0-99.0) % ABG Base Excess (-2.0-3.0) mmol/L ABG Hemoglobin (12.0-16.0) gm/dl ABG Chloride (98-107) mmol/L Oxyhemoglobin (95.0-99.0) % Sodium (137-145) mmol/L Chloride (98-107) mmol/L BUN (7-17) mg/dL POC Glucose (70-105) AST (5-40) units/L ALT (7-56) units/L Total Creatine Kinase 785 H (30-135) units/L CK-MB (CK-2) 12.8 H (0.0-4.0) ng/mL Total Protein (6.3-8.2) g/dL Albumin (3.9-5) g/dL Crossmatch See Detail 12/16/19 12/16/19 12/16/19 Range/Units 14:39 14:50 15:19 WBC (4.5-11.0) K/mm3 RBC 0.64 L (3.65-5.03) M/mm3 Hgb 1.9 L* (10.1-14.3) gm/dl Hct 6.7 L* (30.3-42.9) % MCV 108 H (79-97) fl MCHC 26 L (30-34) % RDW 23.0 H (13.2-15.2) % Plt Count (140-440) K/mm3 Seg Neuts % (Manual) 89.0 H (40.0-70.0) % Lymphocytes % (Manual) 4.0 L (13.4-35.0) % Monocytes % (Manual) (0.0-7.3) % Nucleated RBC % (0.0-0.9) % Lymphocytes # (Manual) 0.3 L (1.2-5.4) K/mm3 PT (12.2-14.9) Sec. INR (0.87-1.13) APTT (24.2-36.6) Sec. Thrombin Time (15.1-19.6) Sec. ABG pH 7.267 L (7.350-7.450) pH Units POC ABG pCO2 (32.0-48.0) mmHg POC ABG pO2 (83-108) mmHg ABG pO2 195.5 H (80.0-90.0) mm Hg ABG HCO3 18.2 L (20.0-26.0) mmol/L ABG O2 Saturation 99.2 H (95.0-99.0) % ABG Base Excess -8.3 L (-2.0-3.0) mmol/L ABG Hemoglobin (12.0-16.0) gm/dl ABG Chloride (98-107) mmol/L Oxyhemoglobin 94.0 L (95.0-99.0) % Sodium (137-145) mmol/L Chloride (98-107) mmol/L BUN (7-17) mg/dL POC Glucose 192 H (70-105) AST (5-40) units/L ALT (7-56) units/L Total Creatine Kinase (30-135) units/L CK-MB (CK-2) (0.0-4.0) ng/mL Total Protein (6.3-8.2) g/dL Albumin (3.9-5) g/dL Crossmatch 12/16/19 12/16/19 12/17/19 Range/Units 21:31 23:54 03:15 WBC 3.2 L (4.5-11.0) K/mm3 RBC 2.52 L (3.65-5.03) M/mm3 Hgb 7.8 L D (10.1-14.3) gm/dl Hct 24.6 L D (30.3-42.9) % MCV 98 H (79-97) fl MCHC (30-34) % RDW 16.2 H (13.2-15.2) % Plt Count 125 L (140-440) K/mm3 Seg Neuts % (Manual) 90.0 H (40.0-70.0) % Lymphocytes % (Manual) 2.0 L (13.4-35.0) % Monocytes % (Manual) 8.0 H (0.0-7.3) % Nucleated RBC % 9.0 H (0.0-0.9) % Lymphocytes # (Manual) 0.1 L (1.2-5.4) K/mm3 PT (12.2-14.9) Sec. INR (0.87-1.13) APTT (24.2-36.6) Sec. Thrombin Time (15.1-19.6) Sec. ABG pH (7.350-7.450) pH Units POC ABG pCO2 (32.0-48.0) mmHg POC ABG pO2 (83-108) mmHg ABG pO2 (80.0-90.0) mm Hg ABG HCO3 (20.0-26.0) mmol/L ABG O2 Saturation (95.0-99.0) % ABG Base Excess (-2.0-3.0) mmol/L ABG Hemoglobin (12.0-16.0) gm/dl ABG Chloride (98-107) mmol/L Oxyhemoglobin (95.0-99.0) % Sodium (137-145) mmol/L Chloride (98-107) mmol/L BUN (7-17) mg/dL POC Glucose 366 H 149 H (70-105) AST (5-40) units/L ALT (7-56) units/L Total Creatine Kinase (30-135) units/L CK-MB (CK-2) (0.0-4.0) ng/mL Total Protein (6.3-8.2) g/dL Albumin (3.9-5) g/dL Crossmatch 12/17/19 12/17/19 12/17/19 Range/Units 04:00 04:59 06:00 WBC (4.5-11.0) K/mm3 RBC (3.65-5.03) M/mm3 Hgb (10.1-14.3) gm/dl Hct (30.3-42.9) % MCV (79-97) fl MCHC (30-34) % RDW (13.2-15.2) % Plt Count (140-440) K/mm3 Seg Neuts % (Manual) (40.0-70.0) % Lymphocytes % (Manual) (13.4-35.0) % Monocytes % (Manual) (0.0-7.3) % Nucleated RBC % (0.0-0.9) % Lymphocytes # (Manual) (1.2-5.4) K/mm3 PT (12.2-14.9) Sec. INR (0.87-1.13) APTT (24.2-36.6) Sec. Thrombin Time (15.1-19.6) Sec. ABG pH 7.273 L (7.350-7.450) pH Units POC ABG pCO2 (32.0-48.0) mmHg POC ABG pO2 (83-108) mmHg ABG pO2 51.7 L (80.0-90.0) mm Hg ABG HCO3 (20.0-26.0) mmol/L ABG O2 Saturation 86.6 L (95.0-99.0) % ABG Base Excess -3.7 L (-2.0-3.0) mmol/L ABG Hemoglobin 8.1 L (12.0-16.0) gm/dl ABG Chloride (98-107) mmol/L Oxyhemoglobin 84.2 L (95.0-99.0) % Sodium 151 H (137-145) mmol/L Chloride 117.6 H (98-107) mmol/L BUN 40 H (7-17) mg/dL POC Glucose 68 L (70-105) AST 208 H (5-40) units/L ALT 137 H (7-56) units/L Total Creatine Kinase (30-135) units/L CK-MB (CK-2) (0.0-4.0) ng/mL Total Protein 3.4 L (6.3-8.2) g/dL Albumin 1.6 L (3.9-5) g/dL Crossmatch 12/17/19 12/17/19 12/17/19 Range/Units 06:00 07:41 13:08 WBC (4.5-11.0) K/mm3 RBC (3.65-5.03) M/mm3 Hgb 8.8 L (10.1-14.3) gm/dl Hct 27.4 L (30.3-42.9) % MCV (79-97) fl MCHC (30-34) % RDW (13.2-15.2) % Plt Count (140-440) K/mm3 Seg Neuts % (Manual) (40.0-70.0) % Lymphocytes % (Manual) (13.4-35.0) % Monocytes % (Manual) (0.0-7.3) % Nucleated RBC % (0.0-0.9) % Lymphocytes # (Manual) (1.2-5.4) K/mm3 PT (12.2-14.9) Sec. INR (0.87-1.13) APTT (24.2-36.6) Sec. Thrombin Time (15.1-19.6) Sec. ABG pH 7.267 L (7.350-7.450) pH Units POC ABG pCO2 51.7 H (32.0-48.0) mmHg POC ABG pO2 58.7 L (83-108) mmHg ABG pO2 (80.0-90.0) mm Hg ABG HCO3 (20.0-26.0) mmol/L ABG O2 Saturation (95.0-99.0) % ABG Base Excess (-2.0-3.0) mmol/L ABG Hemoglobin 9.1 L (12.0-16.0) gm/dl ABG Chloride 118.0 H (98-107) mmol/L Oxyhemoglobin (95.0-99.0) % Sodium (137-145) mmol/L Chloride (98-107) mmol/L BUN (7-17) mg/dL POC Glucose 106 H (70-105) AST (5-40) units/L ALT (7-56) units/L Total Creatine Kinase (30-135) units/L CK-MB (CK-2) (0.0-4.0) ng/mL Total Protein (6.3-8.2) g/dL Albumin (3.9-5) g/dL Crossmatch - Imaging and Cardiology Chest x-ray: report reviewed, image reviewed (R sided pneumonia, ?mass like lesion) Assessment and Plan Cultures: 12/16/2019 blood culture: In process A/P: 59-year-old female with history of CHF admitted to the hospital after she was found unresponsive by the family. Upon evaluation by EMS, patient was noted to be hypoxic with a saturation in the 70s, she was brought to the emergency room and had large amount of coffee-ground emesis and subsequently went into PEA arrest. She was resuscitated, her hemoglobin came back as 1.9, patient was also extremely hypothermic with her temperature being 87.3 F: #Shock, likely hemorrhagic: From GI bleed #Right-sided pneumonia, questionable mass: Patient likely aspirated. #Acute blood loss anemia: Status post EGD with findings of gastric AVMs. #Acute hypoxic respiratory failure: Intubated, on mechanical ventilation Recs: Continue cefepime, vancomycin Follow-up blood cultures ET aspirate ordered May need additional imaging of R lung mass like lesion when stable Isael Parsons MD, FACP [facility] ([facility] O: [phone] F: [phone]
--- NOTE | 2019-12-17 14:22 | Progress Note ---
Assessment and Plan anasarca diffuses le edema pelvis irreg mass cath placed and irrigated clear needs bessemer converter blower and ct eval Subjective Date of service: 12/17/19 Principal diagnosis: urinary retention pelvic mass Objective - Constitutional Vitals: Vital Signs - 12hr 12/17/19 12/17/19 12/17/19 02:31 02:45 03:00 Temperature Pulse Rate 116 H 112 H 124 H Respiratory 22 22 25 H Rate Blood Pressure 116/49 81/40 81/40 O2 Sat by Pulse 95 92 93 Oximetry 12/17/19 12/17/19 12/17/19 03:15 03:30 03:45 Temperature Pulse Rate 115 H 118 H 120 H Respiratory 20 20 21 Rate Blood Pressure 74/42 80/47 84/48 O2 Sat by Pulse 87 89 90 Oximetry 12/17/19 12/17/19 12/17/19 04:00 04:15 04:30 Temperature 99.4 F Pulse Rate 123 H 127 H 133 H Respiratory 20 20 20 Rate Blood Pressure 82/49 92/53 99/51 O2 Sat by Pulse 90 92 92 Oximetry 12/17/19 12/17/19 12/17/19 04:45 04:56 05:00 Temperature Pulse Rate 133 H 134 H 137 H Respiratory 20 20 Rate Blood Pressure 99/51 95/49 96/53 O2 Sat by Pulse 90 90 89 Oximetry 12/17/19 12/17/19 12/17/19 05:15 05:30 05:45 Temperature Pulse Rate 138 H 139 H 138 H Respiratory 20 21 20 Rate Blood Pressure 90/51 80/47 99/50 O2 Sat by Pulse 90 89 88 Oximetry 12/17/19 12/17/19 12/17/19 06:00 06:15 06:31 Temperature Pulse Rate 140 H 137 H 137 H Respiratory 20 20 20 Rate Blood Pressure 87/45 82/55 93/54 O2 Sat by Pulse 90 74 L 92 Oximetry 12/17/19 12/17/19 12/17/19 06:45 07:01 07:15 Temperature Pulse Rate 137 H 138 H 137 H Respiratory 20 18 23 Rate Blood Pressure 85/50 82/45 70/46 O2 Sat by Pulse 92 88 83 L Oximetry 12/17/19 12/17/19 12/17/19 07:31 07:45 08:00 Temperature 101.6 F H Pulse Rate 136 H 136 H Respiratory 18 21 Rate Blood Pressure 82/52 90/38 O2 Sat by Pulse Oximetry 12/17/19 12/17/19 12/17/19 08:01 08:15 08:31 Temperature Pulse Rate 135 H 135 H 133 H Respiratory 22 22 33 H Rate Blood Pressure 90/38 90/38 100/45 O2 Sat by Pulse 70 L 100 90 Oximetry 12/17/19 12/17/19 12/17/19 08:45 09:01 09:15 Temperature Pulse Rate 133 H 128 H 130 H Respiratory 22 22 27 H Rate Blood Pressure 69/27 60/40 60/40 O2 Sat by Pulse 81 L 88 Oximetry 12/17/19 12/17/19 12/17/19 09:31 09:45 10:01 Temperature Pulse Rate 128 H 122 H 127 H Respiratory 21 19 22 Rate Blood Pressure 59/32 59/32 50/30 O2 Sat by Pulse 98 53 L 74 L Oximetry 12/17/19 12/17/19 12/17/19 10:15 10:31 10:45 Temperature 101.6 F H Pulse Rate 126 H 126 H 119 H Respiratory 20 28 H 21 Rate Blood Pressure 47/28 79/55 79/55 O2 Sat by Pulse 75 L 72 L 90 Oximetry 12/17/19 12/17/19 12/17/19 11:01 11:15 11:31 Temperature Pulse Rate 113 H 115 H 112 H Respiratory 28 H 27 H 27 H Rate Blood Pressure 61/40 83/54 79/59 O2 Sat by Pulse 80 L 97 82 L Oximetry 12/17/19 12/17/19 12/17/19 11:44 11:45 11:55 Temperature Pulse Rate 112 H 115 H 110 H Respiratory 25 H 27 H 26 H Rate Blood Pressure 91/32 100/54 90/30 O2 Sat by Pulse 80 L 80 L 86 Oximetry 12/17/19 12/17/19 12/17/19 11:57 12:00 12:10 Temperature Pulse Rate 111 H 114 H Respiratory 25 H 21 27 H Rate Blood Pressure 88/48 100/54 O2 Sat by Pulse 81 L Oximetry 12/17/19 12/17/19 12/17/19 12:15 12:30 12:45 Temperature Pulse Rate 111 H 114 H 117 H Respiratory 22 25 H 24 Rate Blood Pressure 88/41 102/39 104/45 O2 Sat by Pulse 64 L 84 78 L Oximetry 12/17/19 12/17/19 12/17/19 13:01 13:15 13:30 Temperature 98.4 F 98.6 F Pulse Rate 120 H 120 H 111 H Respiratory 28 H 31 H 23 Rate Blood Pressure 95/53 60/42 89/44 O2 Sat by Pulse 74 L Oximetry 12/17/19 13:45 Temperature Pulse Rate 115 H Respiratory 25 H Rate Blood Pressure 80/44 O2 Sat by Pulse Oximetry General appearance: Present: severe distress - Respiratory Respiratory effort: other Extremity abnormal: edema - Genitourinary Female genitourinary: other - Labs CBC & Chem 7: 12/17/19 07:41 12/17/19 04:00 Labs: Abnormal lab results 12/16/19 12/16/19 12/16/19 Range/Units 13:38 14:39 14:50 WBC (4.5-11.0) K/mm3 RBC 0.64 L (3.65-5.03) M/mm3 Hgb 1.9 L* (10.1-14.3) gm/dl Hct 6.7 L* (30.3-42.9) % MCV 108 H (79-97) fl MCHC 26 L (30-34) % RDW 23.0 H (13.2-15.2) % Plt Count (140-440) K/mm3 Seg Neuts % (Manual) 89.0 H (40.0-70.0) % Lymphocytes % (Manual) 4.0 L (13.4-35.0) % Monocytes % (Manual) (0.0-7.3) % Nucleated RBC % (0.0-0.9) % Lymphocytes # (Manual) 0.3 L (1.2-5.4) K/mm3 ABG pH 7.267 L (7.350-7.450) pH Units POC ABG pCO2 (32.0-48.0) mmHg POC ABG pO2 (83-108) mmHg ABG pO2 195.5 H (80.0-90.0) mm Hg ABG HCO3 18.2 L (20.0-26.0) mmol/L ABG O2 Saturation 99.2 H (95.0-99.0) % ABG Base Excess -8.3 L (-2.0-3.0) mmol/L ABG Hemoglobin (12.0-16.0) gm/dl ABG Chloride (98-107) mmol/L Oxyhemoglobin 94.0 L (95.0-99.0) % Sodium (137-145) mmol/L Chloride (98-107) mmol/L BUN (7-17) mg/dL POC Glucose (70-105) AST (5-40) units/L ALT (7-56) units/L Total Protein (6.3-8.2) g/dL Albumin (3.9-5) g/dL Crossmatch See Detail 12/16/19 12/16/19 12/16/19 Range/Units 15:19 21:31 23:54 WBC (4.5-11.0) K/mm3 RBC (3.65-5.03) M/mm3 Hgb (10.1-14.3) gm/dl Hct (30.3-42.9) % MCV (79-97) fl MCHC (30-34) % RDW (13.2-15.2) % Plt Count (140-440) K/mm3 Seg Neuts % (Manual) (40.0-70.0) % Lymphocytes % (Manual) (13.4-35.0) % Monocytes % (Manual) (0.0-7.3) % Nucleated RBC % (0.0-0.9) % Lymphocytes # (Manual) (1.2-5.4) K/mm3 ABG pH (7.350-7.450) pH Units POC ABG pCO2 (32.0-48.0) mmHg POC ABG pO2 (83-108) mmHg ABG pO2 (80.0-90.0) mm Hg ABG HCO3 (20.0-26.0) mmol/L ABG O2 Saturation (95.0-99.0) % ABG Base Excess (-2.0-3.0) mmol/L ABG Hemoglobin (12.0-16.0) gm/dl ABG Chloride (98-107) mmol/L Oxyhemoglobin (95.0-99.0) % Sodium (137-145) mmol/L Chloride (98-107) mmol/L BUN (7-17) mg/dL POC Glucose 192 H 366 H 149 H (70-105) AST (5-40) units/L ALT (7-56) units/L Total Protein (6.3-8.2) g/dL Albumin (3.9-5) g/dL Crossmatch 12/17/19 12/17/19 12/17/19 Range/Units 03:15 04:00 04:59 WBC 3.2 L (4.5-11.0) K/mm3 RBC 2.52 L (3.65-5.03) M/mm3 Hgb 7.8 L D (10.1-14.3) gm/dl Hct 24.6 L D (30.3-42.9) % MCV 98 H (79-97) fl MCHC (30-34) % RDW 16.2 H (13.2-15.2) % Plt Count 125 L (140-440) K/mm3 Seg Neuts % (Manual) 90.0 H (40.0-70.0) % Lymphocytes % (Manual) 2.0 L (13.4-35.0) % Monocytes % (Manual) 8.0 H (0.0-7.3) % Nucleated RBC % 9.0 H (0.0-0.9) % Lymphocytes # (Manual) 0.1 L (1.2-5.4) K/mm3 ABG pH 7.273 L (7.350-7.450) pH Units POC ABG pCO2 (32.0-48.0) mmHg POC ABG pO2 (83-108) mmHg ABG pO2 51.7 L (80.0-90.0) mm Hg ABG HCO3 (20.0-26.0) mmol/L ABG O2 Saturation 86.6 L (95.0-99.0) % ABG Base Excess -3.7 L (-2.0-3.0) mmol/L ABG Hemoglobin 8.1 L (12.0-16.0) gm/dl ABG Chloride (98-107) mmol/L Oxyhemoglobin 84.2 L (95.0-99.0) % Sodium 151 H (137-145) mmol/L Chloride 117.6 H (98-107) mmol/L BUN 40 H (7-17) mg/dL POC Glucose (70-105) AST 208 H (5-40) units/L ALT 137 H (7-56) units/L Total Protein 3.4 L (6.3-8.2) g/dL Albumin 1.6 L (3.9-5) g/dL Crossmatch 12/17/19 12/17/19 12/17/19 Range/Units 06:00 06:00 07:41 WBC (4.5-11.0) K/mm3 RBC (3.65-5.03) M/mm3 Hgb 8.8 L (10.1-14.3) gm/dl Hct 27.4 L (30.3-42.9) % MCV (79-97) fl MCHC (30-34) % RDW (13.2-15.2) % Plt Count (140-440) K/mm3 Seg Neuts % (Manual) (40.0-70.0) % Lymphocytes % (Manual) (13.4-35.0) % Monocytes % (Manual) (0.0-7.3) % Nucleated RBC % (0.0-0.9) % Lymphocytes # (Manual) (1.2-5.4) K/mm3 ABG pH 7.267 L (7.350-7.450) pH Units POC ABG pCO2 51.7 H (32.0-48.0) mmHg POC ABG pO2 58.7 L (83-108) mmHg ABG pO2 (80.0-90.0) mm Hg ABG HCO3 (20.0-26.0) mmol/L ABG O2 Saturation (95.0-99.0) % ABG Base Excess (-2.0-3.0) mmol/L ABG Hemoglobin 9.1 L (12.0-16.0) gm/dl ABG Chloride 118.0 H (98-107) mmol/L Oxyhemoglobin (95.0-99.0) % Sodium (137-145) mmol/L Chloride (98-107) mmol/L BUN (7-17) mg/dL POC Glucose 68 L (70-105) AST (5-40) units/L ALT (7-56) units/L Total Protein (6.3-8.2) g/dL Albumin (3.9-5) g/dL Crossmatch 12/17/19 Range/Units 13:08 WBC (4.5-11.0) K/mm3 RBC (3.65-5.03) M/mm3 Hgb (10.1-14.3) gm/dl Hct (30.3-42.9) % MCV (79-97) fl MCHC (30-34) % RDW (13.2-15.2) % Plt Count (140-440) K/mm3 Seg Neuts % (Manual) (40.0-70.0) % Lymphocytes % (Manual) (13.4-35.0) % Monocytes % (Manual) (0.0-7.3) % Nucleated RBC % (0.0-0.9) % Lymphocytes # (Manual) (1.2-5.4) K/mm3 ABG pH (7.350-7.450) pH Units POC ABG pCO2 (32.0-48.0) mmHg POC ABG pO2 (83-108) mmHg ABG pO2 (80.0-90.0) mm Hg ABG HCO3 (20.0-26.0) mmol/L ABG O2 Saturation (95.0-99.0) % ABG Base Excess (-2.0-3.0) mmol/L ABG Hemoglobin (12.0-16.0) gm/dl ABG Chloride (98-107) mmol/L Oxyhemoglobin (95.0-99.0) % Sodium (137-145) mmol/L Chloride (98-107) mmol/L BUN (7-17) mg/dL POC Glucose 106 H (70-105) AST (5-40) units/L ALT (7-56) units/L Total Protein (6.3-8.2) g/dL Albumin (3.9-5) g/dL Crossmatch Medications & Allergies - Medications Allergies/Adverse Reactions: Allergies Unable to Assess Allergy (Unverified 12/16/19 17:18) Pt unresponsive Active Medications: Generic Name Dose Route Start Last Admin Trade Name Freq PRN Reason Stop Dose Admin Acetaminophen 650 mg 12/16/19 18:58 Tylenol PO Q4H PRN Pain MILD(1-3)/Fever >100.5/RIVERO Acetaminophen 650 mg 12/17/19 09:51 12/17/19 11:57 Tylenol AR 650 mg Q4H PRN Administration TEMP > 100.4 Hydromorphone HCl 0.5 mg 10/06/20 18:58 12/17/19 03:07 Dilaudid IV 0.5 mg Q3H PRN Administration Pain , Severe (7-10) Octreotide Acetate 500 mcg/ 101 mls @ 5.05 mls/hr 12/16/19 13:00 12/16/19 22:29 Sodium Chloride IV 25 mcg/hr TITR ELLA 5.05 mls/hr Administration Protocol 25 MCG/HR Pantoprazole Sodium 80 mg/ 100 mls @ 10 mls/hr 12/16/19 13:00 12/17/19 11:02 Sodium Chloride IV 8 mg/hr DIRECT ELLA 10 mls/hr Administration 8 MG/HR Norepinephrine 4 mg in 250 mls @ 7.5 mls/hr 12/16/19 15:00 12/17/19 13:15 Levophed Drip 4 Mg/Ns 250 Ml IV 30 mcg/min TITR ELLA 112.5 mls/hr Administration Protocol 2 MCG/MIN Vasopressin 20 unit/ Sodium 101 mls @ 9.09 mls/hr 12/16/19 20:00 12/17/19 05:24 Chloride IV 0.03 units/min TITR ELLA 9.09 mls/hr Administration Protocol 0.03 UNITS/MIN Dopamine HCl/Dextrose 800 mg in 250 mls @ 2.914 mls/hr 12/17/19 02:00 12/17/19 13:41 Intropin Drip 800 Mg/D5w 250 Ml IV 20 mcg/kg/min TITR ELLA 29.138 mls/hr Administration Protocol 2 MCG/KG/MIN Cefepime HCl 2 gm in 100 mls @ 200 mls/hr 12/17/19 08:00 12/17/19 09:04 Cefepime/Ns 2 Gm/100 Ml IV 200 mls/hr Q8HR ELLA Administration Protocol Vancomycin HCl 1,250 mg/ 275 mls @ 166.667 mls/hr 12/17/19 22:00 Sodium Chloride IV Q12HR ELLA Sodium Chloride 500 mls @ 0 mls/hr 12/17/19 08:53 12/17/19 12:41 Nacl 0.9% 500 Ml IV 12/17/19 23:59 30 mls/hr ONCE NR Administration As Directed Sodium Chloride 1,000 mls @ 50 mls/hr 12/17/19 10:15 Nacl 0.9% 1000 Ml IV 12/17/19 23:59 DIRECT ELLA Dextrose 1,000 mls @ 150 mls/hr 12/17/19 11:00 12/17/19 13:45 D10w IV 150 mls/hr DIRECT ELLA Administration Phenylephrine HCl 100 mg/ 100 mls @ 3 mls/hr 12/17/19 10:30 12/17/19 11:45 Sodium Chloride IV 80 mcg/min TITR ELLA 4.8 mls/hr Titration Protocol 50 MCG/MIN Morphine Sulfate 2 mg 12/16/19 18:58 Morphine IV Q4H PRN Pain, Moderate (4-6) Ondansetron HCl 4 mg 12/16/19 18:58 Zofran IV Q8H PRN Nausea And Vomiting Sodium Chloride 10 ml 12/16/19 22:00 12/17/19 08:59 Sodium Chloride Flush Syringe 10 Ml IV 10 ml BID ELLA Administration Sodium Chloride 10 ml 12/16/19 18:58 Sodium Chloride Flush Syringe 10 Ml IV PRN PRN LINE FLUSH HEART Score - HEART Score Troponin: Troponin T < 0.010 ng/mL (0.00-0.029) 12/16/19 13:38
--- NOTE | 2019-12-17 15:09 | Progress Note ---
Assessment and Plan Assessment and plan: 59-year-old with history of congestive heart failure is brought in by EMS. Patient was found unresponsive by the family. Patient was normal around 10 AM.. When the EMS arrived the patient's oxygenation was 70%. Patient was found to be tachycardic. In the emergency room patient was unresponsive with a large amount of coffee-ground emesis. Patient also went into cardiac arrest with PEA. Patient was intubated and also received 1 dose of epi. Large amount of coffee- ground emesis and blood was there which were suctioned out. Patient intubated with emergency room physician. Dr. Herrmann. No fever or chills. No exposure to coronavirus. Her labs in the ED was significant for hemoglobin of 12.9. She was started on packed RBCs. 12/16. Patient seen and examined at bedside. Patient got hypotensive and had to be started on pressors. GI has been consulted for upper GI bleed. Started patient on IV antibiotics for possible severe sepsis secondary to pneumonia. ID consulted. Echocardiogram ordered. Urology consulted for urinary retention. Discussed at length with patient's daughter. Patient remains full code. Problems --Acute respiratory failure with hypoxia Current Visit: Yes Status: Acute Plan to address problem: Patient intubated on and on ventilator Vent management as per shank breaker --Acute metabolic encephalopathy Current Visit: Yes Status: Acute Plan to address problem: Intubated ---Severe anemia Current Visit: Yes Status: Acute Plan to address problem: Hemoglobin was 1.9 on presentation Transfuse PRBCs GI consulted ---Upper GI bleed Current Visit: Yes Status: Acute Plan to address problem: Severe upper GI bleed Hemoglobin is dropped to 1.9 Transfused 4 units of packed red blood cells Protonix drip GI on board --Shock likely hypovolemic Current Visit: Yes Status: Acute Plan to address problem: Secondary to blood loss. Management as above Also has some right-sided infiltrates suggestive of pneumonia Started on IV antibiotics. ID consulted --CHF (congestive heart failure) Current Visit: Yes Status: Chronic Qualifiers: Heart failure chronicity: chronic Plan to address problem: Echocardiogram for ejection fraction Cardiology consult ---Abdominal distention Current Visit: Yes Status: Acute Plan to address problem: No urine output since admission Urology consulted for Goetz placement Possible underlying pelvic mass-transvaginal ultrasound and pelvic ultrasound ordered as patient is on stable Need to get a CT abdomen and pelvis when patient becomes more stable (7) DVT prophylaxis Current Visit: Yes Status: Acute Plan to address problem: On SCDs and GI prophylaxis History Interval history: Patient seen and examined at bedside. Intubated. On multiple pressors. Blood pressure still low. Discussed with daughterYadi this morning. Started her on cefepime and vancomycin. ID consulted. Hospitalist Physical - Constitutional Vitals: Temp Pulse Resp BP Pulse Ox 99.0 F 115 H 33 H 45/28 74 L 12/17/19 14:30 12/17/19 14:30 12/17/19 14:30 12/17/19 14:30 12/17/19 13:15 General appearance: Present: severe distress - EENT Eyes: Present: PERRL - Neck Neck: Present: supple - Respiratory Respiratory: bilateral: rales - Cardiovascular Heart Sounds: Present: S1 & S2 - Extremities Extremities: No edema - Abdominal General gastrointestinal: soft, distended, normal bowel sounds - Neurologic Neurologic: other (intubated) HEART Score - HEART Score Troponin: Troponin T < 0.010 ng/mL (0.00-0.029) 12/16/19 13:38 Results - Labs CBC & Chem 7: 12/17/19 07:41 12/17/19 04:00 Labs: Laboratory Last Values WBC 3.2 K/mm3 (4.5-11.0) L 12/17/19 03:15 RBC 2.52 M/mm3 (3.65-5.03) L 12/17/19 03:15 Hgb 8.8 gm/dl (10.1-14.3) L 12/17/19 07:41 Hct 27.4 % (30.3-42.9) L 12/17/19 07:41 MCV 98 fl (79-97) H 12/17/19 03:15 MCH 31 pg (28-32) 12/17/19 03:15 MCHC 32 % (30-34) 12/17/19 03:15 RDW 16.2 % (13.2-15.2) H 12/17/19 03:15 Plt Count 125 K/mm3 (140-440) L 12/17/19 03:15 Add Manual Diff Complete 12/17/19 03:15 Total Counted 100 12/17/19 03:15 Seg Neutrophils % Rn Staff 12/17/19 03:15 Seg Neuts % (Manual) 90.0 % (40.0-70.0) H 12/17/19 03:15 Band Neutrophils % 0 % 12/17/19 03:15 Lymphocytes % (Manual) 2.0 % (13.4-35.0) L 12/17/19 03:15 Reactive Lymphs % (Man) 0 % 12/17/19 03:15 Monocytes % (Manual) 8.0 % (0.0-7.3) H 12/17/19 03:15 Eosinophils % (Manual) 0 % (0.0-4.3) 12/17/19 03:15 Basophils % (Manual) 0 % (0.0-1.8) 12/17/19 03:15 Metamyelocytes % 0 % 12/17/19 03:15 Myelocytes % 0 % 12/17/19 03:15 Promyelocytes % 0 % 12/17/19 03:15 Blast Cells % 0 % 12/17/19 03:15 Nucleated RBC % 9.0 % (0.0-0.9) H 12/17/19 03:15 Seg Neutrophils # Man 2.9 K/mm3 (1.8-7.7) 12/17/19 03:15 Band Neutrophils # 0.0 K/mm3 12/17/19 03:15 Lymphocytes # (Manual) 0.1 K/mm3 (1.2-5.4) L 12/17/19 03:15 Abs React Lymphs (Man) 0.0 K/mm3 12/17/19 03:15 Monocytes # (Manual) 0.3 K/mm3 (0.0-0.8) 12/17/19 03:15 Eosinophils # (Manual) 0.0 K/mm3 (0.0-0.4) 12/17/19 03:15 Basophils # (Manual) 0.0 K/mm3 (0.0-0.1) 12/17/19 03:15 Metamyelocytes # 0.0 K/mm3 12/17/19 03:15 Myelocytes # 0.0 K/mm3 12/17/19 03:15 Promyelocytes # 0.0 K/mm3 12/17/19 03:15 Blast Cells # 0.0 K/mm3 12/17/19 03:15 WBC Morphology Not Reportable 12/17/19 03:15 Hypersegmented Neuts Not Reportable 12/17/19 03:15 Hyposegmented Neuts Not Reportable 12/17/19 03:15 Hypogranular Neuts Not Reportable 12/17/19 03:15 Smudge Cells Not Reportable 12/17/19 03:15 Toxic Granulation Not Reportable 12/17/19 03:15 Toxic Vacuolation Not Reportable 12/17/19 03:15 Dohle Bodies Not Reportable 12/17/19 03:15 Pelger-Huet Anomaly Not Reportable 12/17/19 03:15 Joel Rods Not Reportable 12/17/19 03:15 Platelet Estimate Consistent w auto 12/17/19 03:15 Clumped Platelets Not Reportable 12/17/19 03:15 Plt Clumps, EDTA Not Reportable 12/17/19 03:15 Large Platelets Not Reportable 12/17/19 03:15 Giant Platelets Not Reportable 12/17/19 03:15 Platelet Satelliting Not Reportable 12/17/19 03:15 Plt Morphology Comment Not Reportable 12/17/19 03:15 RBC Morphology Not Reportable 12/17/19 03:15 Dimorphic RBCs Not Reportable 12/17/19 03:15 Polychromasia Not Reportable 12/17/19 03:15 Hypochromasia 1+ 12/17/19 03:15 Poikilocytosis Not Reportable 12/17/19 03:15 Anisocytosis Few 12/17/19 03:15 Microcytosis Not Reportable 12/17/19 03:15 Macrocytosis Few 12/17/19 03:15 Spherocytes Not Reportable 12/17/19 03:15 Pappenheimer Bodies Not Reportable 12/17/19 03:15 Sickle Cells Not Reportable 12/17/19 03:15 Target Cells Not Reportable 12/17/19 03:15 Tear Drop Cells Not Reportable 12/17/19 03:15 Ovalocytes Not Reportable 12/17/19 03:15 Helmet Cells Not Reportable 12/17/19 03:15 [place] Bodies Not Reportable 12/17/19 03:15 [place] Rings Not Reportable 12/17/19 03:15 [place] Cells Rare 12/17/19 03:15 Bite Cells Not Reportable 12/17/19 03:15 Crenated Cell Not Reportable 12/17/19 03:15 Elliptocytes Not Reportable 12/17/19 03:15 Acanthocytes (Spur) Not Reportable 12/17/19 03:15 Rouleaux Not Reportable 12/17/19 03:15 Hemoglobin C Crystals Not Reportable 12/17/19 03:15 Schistocytes Not Reportable 12/17/19 03:15 Malaria parasites Not Reportable 12/17/19 03:15 Sang Bodies Not Reportable 12/17/19 03:15 Hem Pathologist Commnt No 12/17/19 03:15 PT 21.1 Sec. (12.2-14.9) H 12/16/19 13:38 INR 1.78 (0.87-1.13) H 12/16/19 13:38 APTT 23.6 Sec. (24.2-36.6) L 12/16/19 13:38 Thrombin Time 14.6 Sec. (15.1-19.6) L 12/16/19 13:38 ABG pH 7.267 (7.320-7.450) L 12/17/19 06:00 POC ABG pCO2 51.7 mmHg (32.0-48.0) H 12/17/19 06:00 ABG pCO2 51.1 mm Hg 12/17/19 04:59 POC ABG pO2 58.7 mmHg (83-108) L 12/17/19 06:00 ABG pO2 51.7 mm Hg (80.0-90.0) L 12/17/19 04:59 POC ABG HCO3 23 12/17/19 06:00 ABG HCO3 23.1 mmol/L (20.0-26.0) 12/17/19 04:59 ABG O2 Saturation 86.6 % (95.0-99.0) L 12/17/19 04:59 ABG O2 Content 9.6 (0.0-44) 12/17/19 04:59 POC ABG Base Excess -3.9 12/17/19 06:00 ABG Base Excess -3.7 mmol/L (-2.0-3.0) L 12/17/19 04:59 ABG Hemoglobin 9.1 (12.0-17.5) L 12/17/19 06:00 ABG Carboxyhemoglobin 2.1 % (0.0-5.0) 12/17/19 04:59 ABG Methemoglobin 0.6 % (0.0-1.5) 12/17/19 04:59 ABG Sodium 142.9 mmol/L (136.0-145.0) 12/17/19 06:00 ABG Potassium 3.6 mmol/L (3.40-4.50) 12/17/19 06:00 ABG Chloride 118.0 mmol/L (98-107) H 12/17/19 06:00 ABG Glucose 80 mg/dL (65-95) 12/17/19 06:00 Oxyhemoglobin 84.2 % (95.0-99.0) L 12/17/19 04:59 FiO2 90.0 12/17/19 06:00 Sodium 151 mmol/L (137-145) H 12/17/19 04:00 Potassium 3.7 mmol/L (3.6-5.0) 12/17/19 04:00 Chloride 117.6 mmol/L (98-107) H 12/17/19 04:00 Carbon Dioxide 22 mmol/L (22-30) 12/17/19 04:00 Anion Gap 15 mmol/L 12/17/19 04:00 BUN 40 mg/dL (7-17) H 12/17/19 04:00 Creatinine 0.9 mg/dL (0.6-1.2) 12/17/19 04:00 Estimated GFR > 60 ml/min 12/17/19 04:00 BUN/Creatinine Ratio 44 % 12/17/19 04:00 Glucose 78 mg/dL (65-100) 12/17/19 04:00 POC Glucose 106 (70-105) H 12/17/19 13:08 Hemoglobin A1c 4.6 % (4-6) 12/17/19 07:41 Calcium 8.8 mg/dL (8.4-10.2) 12/17/19 04:00 Total Bilirubin 0.50 mg/dL (0.1-1.2) 12/17/19 04:00 AST 208 units/L (5-40) H 12/17/19 04:00 ALT 137 units/L (7-56) H 12/17/19 04:00 Alkaline Phosphatase 90 units/L (35-129) 12/17/19 04:00 Total Creatine Kinase 785 units/L (30-135) H 12/16/19 13:38 CK-MB (CK-2) 12.8 ng/mL (0.0-4.0) H 12/16/19 13:38 CK-MB (CK-2) Rel Index 1.6 (0-4) 12/16/19 13:38 Troponin T < 0.010 ng/mL (0.00-0.029) 12/16/19 13:38 Total Protein 3.4 g/dL (6.3-8.2) L 12/17/19 04:00 Albumin 1.6 g/dL (3.9-5) L 12/17/19 04:00 Albumin/Globulin Ratio 0.9 % 12/17/19 04:00 Arterial Blood Glucose 80 mg/dL (65-95) 12/17/19 06:00 Arterial Blood Ionized Calcium 5.3 mg/dL (4.6-5.3) 12/17/19 06:00 Blood Type O POSITIVE 12/16/19 13:38 Antibody Screen Negative 12/16/19 13:38 Crossmatch See Detail 12/16/19 13:38 Microbiology: Microbiology 12/16/19 14:45 Peripheral/Venous Blood Culture - Preliminary Culture in Progress 12/16/19 14:45 Peripheral/Venous Blood Culture - Preliminary Culture in Progress [place]/IV: Voiding Method External Female Catheter IV Catheter Type [Right Triple Lumen Cath Internal Jugular] IV Catheter Type [Left INT / Saline Lock Antecubital] Active Medications - Current Medications Current Medications: Generic Name Dose Route Start Last Admin Trade Name Freq PRN Reason Stop Dose Admin Acetaminophen 650 mg 12/16/19 18:58 Tylenol PO Q4H PRN Pain MILD(1-3)/Fever >100.5/RIVERO Acetaminophen 650 mg 12/17/19 09:51 12/17/19 11:57 Tylenol [place] 650 mg Q4H PRN Administration TEMP > 100.4 Hydromorphone HCl 0.5 mg 12/16/19 18:58 12/17/19 03:07 Dilaudid IV 0.5 mg Q3H PRN Administration Pain , Severe (7-10) Octreotide Acetate 500 mcg/ 101 mls @ 5.05 mls/hr 12/16/19 13:00 12/16/19 22:29 Sodium Chloride IV 25 mcg/hr TITR ELLA 5.05 mls/hr Administration Protocol 25 MCG/HR Pantoprazole Sodium 80 mg/ 100 mls @ 10 mls/hr 12/16/19 13:00 12/17/19 11:02 Sodium Chloride IV 8 mg/hr DIRECT ELLA 10 mls/hr Administration 8 MG/HR Norepinephrine 4 mg in 250 mls @ 7.5 mls/hr 12/16/19 15:00 12/17/19 13:15 Levophed Drip 4 Mg/Ns 250 Ml IV 30 mcg/min TITR ELLA 112.5 mls/hr Administration Protocol 2 MCG/MIN Vasopressin 20 unit/ Sodium 101 mls @ 9.09 mls/hr 12/16/19 20:00 12/17/19 05:24 Chloride IV 0.03 units/min TITR ELLA 9.09 mls/hr Administration Protocol 0.03 UNITS/MIN Dopamine HCl/Dextrose 800 mg in 250 mls @ 2.914 mls/hr 12/17/19 02:00 12/17/19 13:41 Intropin Drip 800 Mg/D5w 250 Ml IV 20 mcg/kg/min TITR ELLA 29.138 mls/hr Administration Protocol 2 MCG/KG/MIN Cefepime HCl 2 gm in 100 mls @ 200 mls/hr 12/17/19 08:00 12/17/19 14:46 Cefepime/Ns 2 Gm/100 Ml IV 200 mls/hr Q8HR ELLA Administration Protocol Vancomycin HCl 1,250 mg/ 275 mls @ 166.667 mls/hr 12/17/19 22:00 Sodium Chloride IV Q12HR ELLA Sodium Chloride 500 mls @ 0 mls/hr 12/17/19 08:53 12/17/19 12:41 Nacl 0.9% 500 Ml IV 12/17/19 23:59 30 mls/hr ONCE NR Administration As Directed Sodium Chloride 1,000 mls @ 50 mls/hr 12/17/19 10:15 Nacl 0.9% 1000 Ml IV 12/17/19 23:59 DIRECT ELLA Dextrose 1,000 mls @ 150 mls/hr 12/17/19 11:00 12/17/19 13:45 D10w IV 150 mls/hr DIRECT ELLA Administration Phenylephrine HCl 100 mg/ 100 mls @ 3 mls/hr 12/17/19 10:30 12/17/19 14:45 Sodium Chloride IV 190 mcg/min TITR ELLA 11.4 mls/hr Titration Protocol 50 MCG/MIN Morphine Sulfate 2 mg 12/16/19 18:58 Morphine IV Q4H PRN Pain, Moderate (4-6) Ondansetron HCl 4 mg 12/16/19 18:58 Zofran IV Q8H PRN Nausea And Vomiting Sodium Chloride 10 ml 12/16/19 22:00 12/17/19 08:59 Sodium Chloride Flush Syringe 10 Ml IV 10 ml BID ELLA Administration Sodium Chloride 10 ml 12/16/19 18:58 Sodium Chloride Flush Syringe 10 Ml IV PRN PRN LINE FLUSH
--- NOTE | 2019-12-17 15:23 | Ultrasound Report ---
US transvaginal INDICATION / CLINICAL INFORMATION: Concern for cervical mass. TECHNIQUE: Transabdominal. Duplex Color Doppler used: Yes. COMPARISON: None available FINDINGS: UTERUS: Anteverted uterus measures 6.1 x 3.6 cm. -Endometrial stripe measures 0.9 cm. Small quantity of endometrial fluid - Mass lesions: None. RIGHT ADNEXA: No significant ovarian cyst or mass. Normal color Doppler blood flow. LEFT ADNEXA: No significant ovarian cyst or mass. Normal color Doppler blood flow. URINARY BLADDER: No significant abnormality. FREE FLUID: Moderate quantity of free fluid seen within the rectouterine pouch ADDITIONAL FINDINGS: None. IMPRESSION: 1. Please note, the patient was uncooperative and the transvaginal exam wasn't completed. The endomet rium is slightly thickened measuring 9 mm. 2. Moderate quantity of free fluid in the rectouterine pouch. Please see ultrasound abdomen same day for more information. Signer Name: Trace Avila MD Signed: 12/17/2019 3:18 PM Workstation Name: [id number]
--- NOTE | 2019-12-17 16:33 | Ultrasound Report ---
ULTRASOUND ABDOMEN, COMPLETE INDICATION: Hypotension, concern for cirrhosis, no other hx. COMPARISON: None available. FINDINGS: Pancreas: Poorly visualized secondary to bowel gas Abdominal Aorta: Normal. IVC: Normal. Liver: Cirrhosis with nodular surface contour. Gallbladder: Gallbladder sludge with markedly thickened edematous gallbladder wall measuring 9 mm. No visualized stones. Bile ducts: Normal. Common Bile Duct measures 3 mm. Right Kidney: 1.9 cm right parapelvic renal cyst Left Kidney: Simple 3.4 cm left renal cyst Spleen: Normal. Measures 9.4 cm Free fluid: Moderate ascites Additional Findings: None. IMPRESSION: 1. Gallbladder sludge with markedly thick-walled edematous gallbladder worrisome for acute cholecysti tis versus less likely hypoalbuminemia related to cirrhosis. Recommend nuclear medicine HIDA scan cli nical correlation. 2. Cirrhosis with moderate ascites. 3. Pancreas poorly visualized. Signer Name: Ruddy Min MD Signed: 12/17/2019 4:28 PM Workstation Name: [id number]
[2019-12-17] MEDS: NORepinephrine 8 MG in SODIUM CHLORIDE 0.9% 250ML 242 ML IV SCH ×2 (18:10→22:11)
[2019-12-17] MEDS ORDERED: LACTATED RINGERS 500 ML IV ONE (19:16)
[2019-12-17 20:35] LABS: Hemoglobin 10.2 gm/dl (10.1-14.3); Mean Corpuscular HGB Conc 31 % (30-34); Mean Corpuscular Volume 98 fl (79-97); Red Blood Count 3.37 M/mm3 (3.65-5.03); Red Cell Distribution Width 17.2 % (13.2-15.2)
[2019-12-17 20:41] LABS: Platelet Count 79 K/mm3 (140-440)
[2019-12-17 21:00] LABS: Albumin 1.6 g/dL (3.9-5); Calcium 8.1 mg/dL (8.4-10.2)
[2019-12-17] MEDS ORDERED: DEXTROSE 10% IN WATER 1,000 ML IV SCH (21:00)
[2019-12-17] MEDS ORDERED: VANCOMYCIN 1,250 MG in SODIUM CHLORIDE 0.9% 250ML 250 ML IV SCH (22:00)
[2019-12-17] MEDS: DEXTROSE 50% IN WATER (25GM) 50 ML SYRINGE IV PRN (22:52)
[2019-12-18] MEDS: DEXTROSE 50% IN WATER (25GM) 50 ML SYRINGE IV PRN (00:36)
--- NOTE | 2019-12-18 01:13 | Operative Report ---
PREOPERATIVE DIAGNOSES: Severe anemia, critical respiratory and GI status. ____: Pelvic mass with irregularities, elevated bladder neck, urinary retention. PROCEDURE: Insertion of catheter. SURGEON: Jerry Hagan MD FINDINGS: This is a woman who is critical, came in with severe anemia, GI bleed. Catheter could not be placed. We tried to place a catheter. There was resistance. There is an irregular lobular pelvic mass in the base of the bladder and at the apex of the vagina, I suspect. A wire coiled in the bladder. We dilated this irregularity and a 16 [place] irrigated freely. Urine was obtained. The patient tolerated the procedure well. She is in critical condition. JOB# [id number] MARQUISE/MARSHA
[2019-12-18] MEDS ORDERED: SODIUM BICARB 8.4% 50 MEQ/50 ML SYRINGE IV ONE ×3 (02:09→16:28)
[2019-12-18 02:38] LABS: Hematocrit 25.2 % (30.3-42.9); Hemoglobin 7.5 gm/dl (10.1-14.3); Mean Corpuscular HGB Conc 30 % (30-34); Mean Corpuscular Volume 103 fl (79-97); Red Blood Count 2.46 M/mm3 (3.65-5.03)
[2019-12-18] MEDS: OCTREOTIDE 500 MCG in SODIUM CHLORIDE 0.9% 100 ML IV SCH (02:46)
[2019-12-18] MEDS: NORepinephrine 8 MG in SODIUM CHLORIDE 0.9% 250ML 242 ML IV SCH (02:47)
[2019-12-18 02:51] VITALS: BP 41/10
[2019-12-18 02:51] LABS: Calcium 7.5 mg/dL (8.4-10.2)
[2019-12-18 02:58] LABS: Platelet Count 45 K/mm3 (140-440)
[2019-12-18] MEDS: PHENYLEPHRINE 100 MG in SODIUM CHLORIDE 0.9% 90 ML IV SCH (03:22)
[2019-12-18] MEDS: DEXTROSE 10% IN WATER 1,000 ML IV SCH (03:41)
--- NOTE | 2019-12-18 08:18 | Event Note ---
Date: 12/18/19 3 code blues were called 11 PM and 4:24 AM. All 3 CODE BLUE sweats entered by me and run by me. Patient was revived twice with epinephrine and bicarbonate sodium and chest compressions. Third time patient would not be revived. Cause of cardiorespiratory failure. Time of is of 423.
[2019-12-18] MEDS ORDERED: STERILE WATER FOR INJ IV ONE (08:41)
[2019-12-18] MEDS ORDERED: PNEUMOCOCCAL 23 Valent 0.5 ML VIAL IM ONE (12:00)
--- NOTE | 2019-12-18 14:34 | Death Summary ---
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 Patient was found unresponsive by the family. Patient was normal around 10 AM.. When the EMS arrived the patient's oxygenation was 70%. Patient was found to be tachycardic. In the emergency room patient was unresponsive with a large amount of coffee-ground emesis. Patient also went into cardiac arrest with PEA. Patient was intubated and also received 1 dose of epi. Large amount of coffee-ground emesis and blood was there which were suctioned out. Patient intubated with emergency room physician. Dr. Herrmann. No fever or chills. No exposure to coronavirus. Her labs in the ED was significant for hemoglobin of 1.9. She was started on packed RBCs. Repeat Hb remains >7. 10/7. Patient seen and examined at bedside. Patient got hypotensive and had to be started on pressors. GI has been consulted for upper GI bleed. Started patient on IV antibiotics for possible severe sepsis secondary to pneumonia. ID consulted. Echocardiogram ordered. Urology consulted for urinary retention as she was not make urine and her abdomen was slightly distended. Discussed at length with patient's daughter. Patient remains full code. 2PM. Patient continued to require maximum pressors. Urology placed a marie for drainage. There was a concern for possible pelvis mass and US pelvis and transvaginal was ordered. Plan for CT pelvis when patient is more stable. EGD performed shows gastic AVMs. She was maintained on IV ppi and octreotide. 12/17. Patient had cardiac arrest x 3 times and subsequently no ROSC was obtained. She was pronounced at 4:24am. Family was updated and condolences extended. Diagnoses Hypovolemic shock from GI bleed Acute respiratory failure with hypoxia Pneumonia Urinary retention - Final diagnosis (1) Hypovolemic shock Note: Final diagnosis: (2) Acute metabolic encephalopathy Note: Final diagnosis: (3) Acute respiratory failure with hypoxia Note: Final diagnosis: (4) Cardiopulmonary arrest Note: Final diagnosis: (5) Severe anemia Note: Final diagnosis: (6) Upper GI bleed Note: Final diagnosis:
[2019-12-18] MEDS ORDERED: DEXTROSE 50% IN WATER (25GM) 50 ML VIAL IV ONE (16:28)
[2019-12-18] MEDS ORDERED: EPINEPHrine 1 MG/10 ML SYRINGE ONE (16:28)
== END 2019-12-18 05:00 | DRG 871 ==
LOC: ED 12:12 → CC1 17:23
PROVIDERS: ADMIT Internal Medicine; ATTEND Internal Medicine
PROC: 0BH17EZ Insertion of Endotracheal Airway into Trachea, Via Natural or Artificial Opening (ICD-10-PCS; principal; 2019-12-16)
PROC: 5A1945Z Respiratory Ventilation, 24-96 Consecutive Hours (ICD-10-PCS; 2019-12-16)
PROC: 30233N1 Transfusion of Nonautologous Red Blood Cells into Peripheral Vein, Percutaneous Approach (ICD-10-PCS; 2019-12-16)
PROC: 4A033R1 Measurement of Arterial Saturation, Peripheral, Percutaneous Approach (ICD-10-PCS; 2019-12-16)
PROC: 02HV33Z Insertion of Infusion Device into Superior Vena Cava, Percutaneous Approach (ICD-10-PCS; 2019-12-16)
PROC: 5A12012 Performance of Cardiac Output, Single, Manual (ICD-10-PCS; 2019-12-16)
PROC: 06L38CZ Occlusion of Esophageal Vein with Extraluminal Device, Via Natural or Artificial Opening Endoscopic (ICD-10-PCS; 2019-12-17)
PROC: 0W3P8ZZ Control Bleeding in Gastrointestinal Tract, Via Natural or Artificial Opening Endoscopic (ICD-10-PCS; 2019-12-17)
DX: A41.9 Sepsis, unspecified organism (principal); J96.01 Acute respiratory failure with hypoxia; G93.41 Metabolic encephalopathy; K31.811 Angiodysplasia of stomach and duodenum with bleeding; I85.01 Esophageal varices with bleeding; K25.4 Chronic or unspecified gastric ulcer with hemorrhage; J18.9 Pneumonia, unspecified organism; D62 Acute posthemorrhagic anemia; R65.20 Severe sepsis without septic shock; R57.1 Hypovolemic shock; I46.9 Cardiac arrest, cause unspecified; Z82.49 Family history of ischemic heart disease and other diseases of the circulatory system; I50.9 Heart failure, unspecified; I95.9 Hypotension, unspecified; N94.89 Other specified conditions associated with female genital organs and menstrual cycle; R33.9 Retention of urine, unspecified
CPT/HCPCS: 36415; 36600; 70450; 71045; 74018; 76700; 76830; 80048; 80053; 82140; 82550; 82553; 82803; 82805; 82962; 83036; 84484; 85007; 85014; 85018; 85025; 85027; 85610; 85670; 85730; 86850; 86900; 86901; 86920; 87040; 87070; 87205; 93005; 94002; 96365; 96375; G0378; C9113; J0171; J0330; J0692; J1170; J1265; J2250; J2354; J2370; J3010; J3370; J7030; J7040; J7042; J7050; J7120; P9016